=== PATIENT | male | born 1960 | race African-American/Black ===

== ENCOUNTER 2017-07-12 21:15 | Inpatient (IN) | payer MEDICAID ==
[~2017-07-12] VITALS: Ht 190.5 cm; Wt 84.8 kg
[2017-07-12] MEDS ORDERED: SODIUM CHLORIDE 0.9% 1,000 ML IV ONE ×2 (22:15)
[2017-07-12] MEDS ORDERED: NIVO40VI IV (22:53)
[2017-07-12 23:08] LABS: CLARITY URINE CLEAR (CLEAR); COLOR URINE YELLOW (YELLOW); KETONES URINE NEGATIVE (NEGATIVE); LEUKOCYTE ESTERASE URINE NEGATIVE (NEGATIVE); NITRITE URINE NEGATIVE (NEGATIVE); OCCULT BLOOD URINE 3+ (NEGATIVE); PH URINE 5.5 (4.5-8.0); PROTEIN URINE TRACE (NEGATIVE); SPECIFIC GRAVITY URINE 1.018 (1.005-1.030)
[2017-07-12 23:21] LABS: HEMATOCRIT. 26.7 % (42.0-52.0); HEMOGLOBIN. 8.9 g/dL (14.0-18.0); MEAN CORPUSCULAR HEMOGLOBIN 26.5 pg (28.0-32.0); MEAN CORPUSCULAR VOLUME 79.6 fL (80.0-94.0); MEAN PLATELET VOLUME 7.7 fl (7.4-10.4); PLATELET 440 x1000/uL (130-400); RED BLOOD CELL COUNT 3.36 mill/uL (4.7-6.1); RED CELL DISTRIBUTION WIDTH 16.8 % (11.6-14.6)
[2017-07-12 23:26] LABS: CHLORIDE 107 mEq/L (98-107)
[2017-07-12 23:28] LABS: INR 1.4; PROTHROMBIN TIME 14.6 sec (9.4-11.6)
[2017-07-12] MEDS ORDERED: VANCOMYCIN 1 G PREMIX 200 ML IV ONE (23:45)
[2017-07-12] MEDS ORDERED: PIPERACILLIN/TAZ 3.375G PREMIX 50 ML IV ONE (23:45)
[2017-07-12] MEDS ORDERED: SODIUM CHLORIDE 0.9% 500 ML IV ONE (23:45)
[2017-07-12 23:51] LABS: PLATELET ESTIMATE INCREASED
[2017-07-13 00:26] LABS: BG BASE EXCESS 0.1 mmol/L (-2.0-2.0); BG CARBOXYHEMOGLOBIN 1.5 % (0.5-1.5); BG DEOXYHEMOGLOBIN 31.5 % (0.0-5.0); BG FRACTION INSPIRED OXYGEN 100; BG HCO3 ACT 23.5 mmol/L (22.0-26.0); BG METHEMOGLOBIN 0.3 % (0.0-1.5); BG OXYGEN SATURATION 67.9 % (92.0-98.5); BG OXYHEMOGLOBIN 66.7 % (94.0-97.0); BG PO2 36.9 mmHg (75.0-100.0); BG SAMPLE SITE RIGHT FEMORAL; BG TOTAL HEMOGLOBIN 8.7 g/dL (12.0-18.0); BG VENT MODE MASK - AEROSOL
[2017-07-13] MEDS ORDERED: SODIUM CHLORIDE 0.9% 1,000 ML IV ONE (01:00)
[2017-07-13] MEDS ORDERED: IPRATROPIUM/ALBUTEROL 0.5-3(2.5)MG/3ML NEB HHN PRN (08:45)
[2017-07-13 08:58] LABS: BG CARBOXYHEMOGLOBIN 0.9 % (0.5-1.5); BG CPAP (cmH2O) 0 cm(H2O); BG HCO3 ACT 20.3 mmol/L (22.0-26.0); BG METHEMOGLOBIN 0.3 % (0.0-1.5); BG OXYHEMOGLOBIN 98.8 % (94.0-97.0); BG PCO2 25.9 mmHg (35.0-45.0); BG PH 7.512 (7.350-7.450); BG PO2 306.6 mmHg (75.0-100.0); BG SAMPLE SITE RIGHT BRACHIAL; BG TOTAL HEMOGLOBIN 8.4 g/dL (12.0-18.0); BG VENT MODE VENT - CPAP
[2017-07-13] MEDS ORDERED: LEVOFLOXACIN 750MG PREMIX 150 ML IV SCH (11:00)
[2017-07-13] MEDS ORDERED: IPRATROPIUM/ALBUTEROL 0.5-3(2.5)MG/3ML NEB HHN SCH (12:00)
[2017-07-13] MEDS ORDERED: CLONIDINE 0.1MG TABLET PO PRN (15:45)
[2017-07-13] MEDS ORDERED: VANCOMYCIN 1 G PREMIX 200 ML IV SCH (15:45)
[2017-07-13] MEDS ORDERED: ACETAMINOPHEN 650MG SUPP PR PRN (15:45)
[2017-07-13] MEDS ORDERED: NA PHOS,M-B/NA PHOS,DI-BA ENEMA 118ML PR PRN (15:45)
[2017-07-13] MEDS ORDERED: SODIUM CHLORIDE 0.9% 1,000 ML IV SCH (15:45)
[2017-07-13] MEDS ORDERED: POTASSIUM CHLORIDE 20MEQ TABLET SR PO NR (15:45)
[2017-07-13] MEDS ORDERED: MAGNESIUM/ALUMINUM HYDROXIDE/SIMETHICONE 30ML UDC PO PRN (15:45)
[2017-07-13] MEDS ORDERED: GUAIFENESIN 200MG/10ML SUGAR FREE UDC PO PRN (15:45)
[2017-07-13] MEDS ORDERED: PIPERACILLIN/TAZ 2.25G PREMIX 50 ML IV ONE (15:45)
[2017-07-13] MEDS ORDERED: IPRATROPIUM/ALBUTEROL 0.5-3(2.5)MG/3ML NEB INH PRN (15:45)
[2017-07-13] MEDS ORDERED: ACETAMINOPHEN 325MG TABLET PO PRN (15:45)
[2017-07-13] MEDS ORDERED: DOCUSATE SODIUM 100MG CAPSULE PO PRN (15:45)
[2017-07-13] MEDS ORDERED: METRONIDAZOLE 500 MG PREMIX 100 ML IV ONE (15:45)
[2017-07-13] MEDS ORDERED: ACETAMINOPHEN 650MG/20.3ML UDC GT PRN (15:45)
[2017-07-13] MEDS ORDERED: NOREPINEPHRINE 4 MG in DEXT 5% WATER 246 ML IV NR ×2 (16:20→16:30)
[2017-07-13] MEDS ORDERED: PAMIDRONATE DISODIUM 90 MG in SODIUM CHLORIDE 0.9% 500 ML IV NR (17:00)
[2017-07-13 17:52] LABS: CHLORIDE 116 mEq/L (98-107)
[2017-07-13 18:01] LABS: CREATINE KINASE 438 IU/L (39-308); CREATINE KINASE MB FRACTION 5.4 ng/mL (0.5-3.6); HDL CHOLESTEROL 23 mg/dL (40-59)
[2017-07-13 18:03] LABS: LDL CHOLESTEROL 8 mg/dL (5-100)
[2017-07-13] MEDS ORDERED: DEXTROSE 50% WATER 50ML SYRINGE IV ONE (18:10)
[2017-07-13 19:03] LABS: HEMATOCRIT. 25.2 % (42.0-52.0); MEAN CORPUSCULAR HEMOGLOBIN 25.7 pg (28.0-32.0); MEAN CORPUSCULAR VOLUME 80.6 fL (80.0-94.0); MEAN PLATELET VOLUME 7.8 fl (7.4-10.4); PLATELET 358 x1000/uL (130-400); RED BLOOD CELL COUNT 3.12 mill/uL (4.7-6.1); RED CELL DISTRIBUTION WIDTH 16.3 % (11.6-14.6)
[2017-07-13 19:30] LABS: PLATELET ESTIMATE NORMAL
[2017-07-13] MEDS ORDERED: PIPERACILLIN/TAZ 3.375G PREMIX 50 ML IV SCH (21:15)
[2017-07-13] MEDS ORDERED: MORPHINE SULFATE 4 MG/ML CPJ (NOT FOR IM USE) IV PRN (21:45)
[2017-07-13] MEDS ORDERED: ONDANSETRON HCL 4MG/2ML VIAL IV PRN (21:45)
[2017-07-13] MEDS ORDERED: PIPERACILLIN/TAZ 2.25G PREMIX 50 ML IV SCH (21:45)
[2017-07-13] MEDS ORDERED: POTASSIUM CHLORIDE INJ 40 MEQ in DEXT 5% WATER 500 ML IV NR (22:00)
[2017-07-13] MEDS ORDERED: SODIUM CHLORIDE 10% FOR INH 15ML VIAL NEB INH SCH (22:00)
[2017-07-13] MEDS ORDERED: ALBUMIN HUMAN 25GM/100ML (25%) IV NR (23:00)
[2017-07-13] MEDS: PIPERACILLIN/TAZ 3.375G PREMIX 50 ML IV SCH (23:00)
[2017-07-13] MEDS ORDERED: MVI, ADULT NO.1 10 ML, FOLIC ACID 1 MG, THIAMINE HCL 100 MG in SODIUM CHLORIDE 0.9% 1,0... IV SCH ×4 (23:00)
[2017-07-13] MEDS: MORPHINE SULFATE 4 MG/ML CPJ (NOT FOR IM USE) IV PRN (23:30)
[2017-07-13] MEDS: DEXTROSE 5% WATER 1,000 ML IV SCH (23:46)
[2017-07-14] VITALS (72 sets, daily range): BP systolic 62–155; BP diastolic 29–80
[2017-07-14] MEDS ORDERED: VANCOMYCIN 1500MG in DEXTROSE 5% WATER 250ML IV NR ×2
[2017-07-14] MEDS ORDERED: MAGNESIUM 2 G PREMIX 50 ML IV NR (01:00)
[2017-07-14] MEDS: IPRATROPIUM/ALBUTEROL 0.5-3(2.5)MG/3ML NEB INH SCH ×4 (01:17→20:50)
[2017-07-14] MEDS: ACETYLCYSTEINE 100MG/ML 10% VIAL 4ML INH SCH ×3 (01:18→13:35)
[2017-07-14 03:17] LABS: CREATINE KINASE MB FRACTION 4.2 ng/mL (0.5-3.6)
[2017-07-14 04:02] LABS: CLARITY URINE CLEAR (CLEAR); COLOR URINE YELLOW (YELLOW); KETONES URINE NEGATIVE (NEGATIVE); LEUKOCYTE ESTERASE URINE NEGATIVE (NEGATIVE); NITRITE URINE NEGATIVE (NEGATIVE); OCCULT BLOOD URINE 2+ (NEGATIVE); PH URINE 5.5 (4.5-8.0); PROTEIN URINE TRACE (NEGATIVE); SPECIFIC GRAVITY URINE 1.017 (1.005-1.030)
[2017-07-14 04:45] LABS: *AMPHETAMINES SCREEN URINE NEGATIVE (NEGATIVE); *BARBITURATES SCREEN URINE NEGATIVE (NEGATIVE); CANNABINOID URINE SCREEN NEGATIVE (NEGATIVE); PHENCYCLIDINE URINE SCREEN NEGATIVE (NEGATIVE)
[2017-07-14 04:46] LABS: *BENZODIAZEPINES SCREEN URINE NEGATIVE (NEGATIVE); *COCAINE SCREEN URINE NEGATIVE (NEGATIVE); METHADONE URINE SCREEN NEGATIVE (NEGATIVE); OPIATES URINE SCREEN PRESUMTIVE POSITIVE (NEGATIVE)
[2017-07-14 05:25] LABS: HEMATOCRIT. 22.1 % (42.0-52.0); HEMOGLOBIN. 7.4 g/dL (14.0-18.0); MEAN CORPUSCULAR HEMOGLOBIN 27.2 pg (28.0-32.0); MEAN CORPUSCULAR VOLUME 81.1 fL (80.0-94.0); MEAN PLATELET VOLUME 8.1 fl (7.4-10.4); PLATELET 257 x1000/uL (130-400); RED BLOOD CELL COUNT 2.73 mill/uL (4.7-6.1); RED CELL DISTRIBUTION WIDTH 16.3 % (11.6-14.6)
[2017-07-14 05:47] LABS: CHLORIDE 114 mEq/L (98-107)
[2017-07-14 06:01] LABS: HDL CHOLESTEROL 19 mg/dL (40-59)
[2017-07-14 06:02] LABS: CREATINE KINASE 328 IU/L (39-308)
[2017-07-14 06:05] LABS: CREATINE KINASE MB FRACTION 3.2 ng/mL (0.5-3.6)
[2017-07-14 06:06] LABS: LDL CHOLESTEROL 7 mg/dL (5-100)
[2017-07-14] MEDS: PIPERACILLIN/TAZ 3.375G PREMIX 50 ML IV SCH ×3 (06:32→21:43)
[2017-07-14] MEDS: NOREPINEPHRINE 4 MG in DEXT 5% WATER 246 ML IV PRN (07:00)
[2017-07-14] MEDS ORDERED: VANCOMYCIN 1 G PREMIX 200 ML IV SCH (08:00)
[2017-07-14] MEDS: ENOXAPARIN 40MG/0.4ML SYR SUBCUT SCH (09:59)
[2017-07-14] MEDS: DEXTROSE 5% WATER 1,000 ML IV SCH (10:00)
[2017-07-14 11:28] LABS: PLATELET ESTIMATE NORMAL
[2017-07-14] MEDS: LEVOFLOXACIN 750MG PREMIX 150 ML IV SCH (12:43)
[2017-07-14] MEDS: VANCOMYCIN 1 G PREMIX 200 ML IV SCH ×3 (12:43→22:21)
[2017-07-14 12:56] LABS: HEMATOCRIT. 23.3 % (42.0-52.0); HEMOGLOBIN. 7.3 g/dL (14.0-18.0); MEAN CORPUSCULAR HEMOGLOBIN 26.5 pg (28.0-32.0); MEAN CORPUSCULAR VOLUME 84.6 fL (80.0-94.0); MEAN PLATELET VOLUME 8.4 fl (7.4-10.4); PLATELET 253 x1000/uL (130-400); RED BLOOD CELL COUNT 2.76 mill/uL (4.7-6.1); RED CELL DISTRIBUTION WIDTH 16.9 % (11.6-14.6)
[2017-07-14] MEDS ORDERED: LIDOCAINE HCL/PF 1% 10 MG/ML 5ML VIAL ONE (14:13)
[2017-07-14] MEDS ORDERED: SODIUM CHLORIDE 0.9% 1,000 ML IV ONE (14:15)
[2017-07-14] MEDS: DOPAMINE 400MG PREMIX 250 ML IV PRN (16:29)
[2017-07-14 17:04] LABS: PLATELET ESTIMATE NORMAL
[2017-07-15] VITALS (83 sets, daily range): BP systolic 36–156; BP diastolic 17–92
[2017-07-15] MEDS: DEXTROSE 5% WATER 1,000 ML IV SCH (00:19)
[2017-07-15] MEDS: ACETYLCYSTEINE 100MG/ML 10% VIAL 4ML INH SCH ×3 (01:30→13:17)
[2017-07-15] MEDS: IPRATROPIUM/ALBUTEROL 0.5-3(2.5)MG/3ML NEB INH SCH ×4 (01:30→19:59)
[2017-07-15] MEDS: MORPHINE SULFATE 4 MG/ML CPJ (NOT FOR IM USE) IV PRN ×2 (02:02→18:53)
[2017-07-15] MEDS: VANCOMYCIN 1 G PREMIX 200 ML IV SCH (05:06)
[2017-07-15] MEDS: PIPERACILLIN/TAZ 3.375G PREMIX 50 ML IV SCH ×3 (05:08→20:39)
[2017-07-15 05:59] LABS: HEMATOCRIT. 24.7 % (42.0-52.0); HEMOGLOBIN. 8.3 g/dL (14.0-18.0); MEAN CORPUSCULAR HEMOGLOBIN 26.8 pg (28.0-32.0); MEAN CORPUSCULAR VOLUME 79.8 fL (80.0-94.0); MEAN PLATELET VOLUME 8.2 fl (7.4-10.4); PLATELET 233 x1000/uL (130-400); RED CELL DISTRIBUTION WIDTH 16.4 % (11.6-14.6)
[2017-07-15 06:13] LABS: CHLORIDE 112 mEq/L (98-107)
[2017-07-15 06:20] LABS: PHOSPHORUS 1.4 mg/dL (2.5-4.9)
[2017-07-15] MEDS: DOPAMINE 400MG PREMIX 250 ML IV PRN (08:20)
[2017-07-15] MEDS: ENOXAPARIN 40MG/0.4ML SYR SUBCUT SCH (08:21)
[2017-07-15] MEDS ORDERED: POTASSIUM PHOS,M-BASIC-D-BASIC 20 MMOL in DEXT 5% WATER 243.3333 ML IV NR (11:00)
[2017-07-15 11:18] LABS: NUCLEATED RED BLOOD CELLS 2 /100 WBC
[2017-07-15] MEDS: LEVOFLOXACIN 750MG PREMIX 150 ML IV SCH (12:48)
[2017-07-15] MEDS ORDERED: PAMIDRONATE DISODIUM 60 MG in SODIUM CHLORIDE 0.9% 500 ML IV ONE (13:30)
[2017-07-15] MEDS: VANCOMYCIN 1250MG in DEXTROSE 5% WATER 250ML IV SCH ×2 (14:02→21:21)
[2017-07-15 18:12] LABS: TOTAL IRON BINDING CAPACITY 151 ug/dL (250-450)
[2017-07-15 18:19] LABS: BG BASE EXCESS -0.7 mmol/L (-2.0-2.0); BG CARBOXYHEMOGLOBIN 0.4 % (0.5-1.5); BG DEOXYHEMOGLOBIN 0.6 % (0.0-5.0); BG FRACTION INSPIRED OXYGEN 55; BG HCO3 ACT 20.6 mmol/L (22.0-26.0); BG METHEMOGLOBIN 0.3 % (0.0-1.5); BG OXYGEN SATURATION 99.4 % (92.0-98.5); BG OXYHEMOGLOBIN 98.7 % (94.0-97.0); BG PCO2 23.7 mmHg (35.0-45.0); BG PH 7.557 (7.350-7.450); BG PO2 193.8 mmHg (75.0-100.0); BG SAMPLE SITE RIGHT RADIAL; BG TIDAL VOLUME(mL) 500 mL; BG TOTAL HEMOGLOBIN 9.9 g/dL (12.0-18.0); BG VENT MODE VENT - A/C; BG VENT RATE 12 set
[2017-07-15 18:48] LABS: VITAMIN B12 SERUM > 2000.0 pg/mL (211-911)
[2017-07-15] MEDS: NOREPINEPHRINE 4 MG in DEXT 5% WATER 246 ML IV PRN (18:53)
[2017-07-15 19:59] LABS: FERRITIN 2075 ng/mL (22-322)
[2017-07-15] MEDS: DIPHENHYDRAMINE 50MG/ML VIAL IV PRN (20:31)
[2017-07-15] MEDS: PANTOPRAZOLE SODIUM 40 MG/VIAL IV SCH (20:41)
[2017-07-16] VITALS (71 sets, daily range): BP systolic 77–142; BP diastolic 45–89
[2017-07-16] MEDS: IPRATROPIUM/ALBUTEROL 0.5-3(2.5)MG/3ML NEB INH SCH ×4 (01:32→19:59)
[2017-07-16] MEDS: ACETYLCYSTEINE 100MG/ML 10% VIAL 4ML INH SCH ×3 (01:32→13:03)
[2017-07-16] MEDS: PIPERACILLIN/TAZ 3.375G PREMIX 50 ML IV SCH ×4 (02:43→21:24)
[2017-07-16 05:49] LABS: BASOPHILS % 0.1 % (0.0-2.0); EOSINOPHILS % 0.1 % (0.0-5.0); HEMATOCRIT. 23.7 % (42.0-52.0); HEMOGLOBIN. 7.6 g/dL (14.0-18.0); LYMPHOCYTES % 1.8 % (20.0-50.0); MEAN CORPUSCULAR HEMOGLOBIN 25.3 pg (28.0-32.0); MEAN CORPUSCULAR VOLUME 78.9 fL (80.0-94.0); MEAN PLATELET VOLUME 8.3 fl (7.4-10.4); PLATELET 222 x1000/uL (130-400); RED CELL DISTRIBUTION WIDTH 16.4 % (11.6-14.6)
[2017-07-16 06:25] LABS: CHLORIDE 106 mEq/L (98-107)
[2017-07-16] MEDS: VANCOMYCIN 1250MG in DEXTROSE 5% WATER 250ML IV SCH (06:25)
[2017-07-16 06:40] LABS: PHOSPHORUS 1.8 mg/dL (2.5-4.9)
[2017-07-16] MEDS ORDERED: MORPHINE SULFATE 4 MG/ML CPJ (NOT FOR IM USE) IV PRN (08:15)
[2017-07-16] MEDS: NOREPINEPHRINE 4 MG in DEXT 5% WATER 246 ML IV PRN ×2 (08:38→16:16)
[2017-07-16] MEDS ORDERED: MAGNESIUM 2 G PREMIX 50 ML IV SCH (09:00)
[2017-07-16] MEDS: ENOXAPARIN 40MG/0.4ML SYR SUBCUT SCH (09:00)
[2017-07-16] MEDS: CALCITONIN,SALMON, 3.7 ML NASAL SPRAY ONENSTRL SCH ×2 (09:00→14:51)
[2017-07-16 09:09] LABS: A/G RATIO 0.7 (0.7-1.7); ALPHA-1-GLOBULIN 0.5 g/dL (0.0-0.4); ALPHA-2-GLOBULIN 0.8 g/dL (0.4-1.0); BETA GLOBULIN 0.7 g/dL (0.7-1.3); GAMMA GLOBULINS 0.9 g/dL (0.4-1.8); GLOBULIN TOTAL 2.9 g/dL (2.2-3.9); IMMUNOGLOBULIN A 285 mg/dL (90-386); IMMUNOGLOBULIN G 881 mg/dL (700-1600); IMMUNOGLOBULIN M 61 mg/dL (20-172); M-SPIKE Not Observed g/dL (Not Observed); TOTAL PROTEIN SERUM 4.9 g/dL (6.0-8.5); VITAMIN D 25-OH 69.5 ng/mL (30.0-100.0)
[2017-07-16] MEDS: PANTOPRAZOLE SODIUM 40 MG/VIAL IV SCH ×2 (09:16→21:19)
[2017-07-16] MEDS ORDERED: POTASSIUM PHOS,M-BASIC-D-BASIC 20 MMOL in DEXT 5% WATER 243.3333 ML IV SCH (10:00)
[2017-07-16 10:04] LABS: BG BASE EXCESS 0.1 mmol/L (-2.0-2.0); BG CARBOXYHEMOGLOBIN 1.3 % (0.5-1.5); BG DEOXYHEMOGLOBIN 1.3 % (0.0-5.0); BG FRACTION INSPIRED OXYGEN 40; BG HCO3 ACT 23.3 mmol/L (22.0-26.0); BG OXYHEMOGLOBIN 97.4 % (94.0-97.0); BG PCO2 31.8 mmHg (35.0-45.0); BG PH 7.483 (7.350-7.450); BG PO2 120.1 mmHg (75.0-100.0); BG PRESSURE SUPPORT 12; BG SAMPLE SITE RIGHT RADIAL; BG TIDAL VOLUME(mL) 500 mL; BG TOTAL HEMOGLOBIN 7.8 g/dL (12.0-18.0); BG VENT MODE VENT - SIMV; BG VENT RATE 8 set
[2017-07-16] MEDS ORDERED: SODIUM CHLORIDE 0.9% 1,000 ML IV STA (12:21)
[2017-07-16 13:18] LABS: CREATINE KINASE MB FRACTION 0.9 ng/mL (0.5-3.6)
[2017-07-16 15:16] LABS: INR 1.4; PROTHROMBIN TIME 14.2 sec (9.4-11.6)
[2017-07-16 15:59] LABS: LDL CHOLESTEROL 14 mg/dL (5-100)
[2017-07-16 16:00] LABS: HDL CHOLESTEROL 17 mg/dL (40-59)
[2017-07-16 16:01] LABS: T4 FREE 0.76 ng/dL (0.76-1.46)
[2017-07-16] MEDS: MORPHINE SULFATE 4 MG/ML CPJ (NOT FOR IM USE) IV PRN ×2 (16:36→21:16)
[2017-07-16] MEDS: HYDROCORTISONE SOD SUCCINATE 100 MG/2 ML VIAL IV SCH ×2 (17:51→21:20)
[2017-07-16] MEDS: DEXTROSE 5% WATER 1,000 ML IV SCH (17:52)
[2017-07-16] MEDS: DIPHENHYDRAMINE 50MG/ML VIAL IV PRN (21:19)
[2017-07-17] VITALS (73 sets, daily range): BP systolic 91–132; BP diastolic 40–93
[2017-07-17] MEDS: IPRATROPIUM/ALBUTEROL 0.5-3(2.5)MG/3ML NEB INH SCH ×4 (00:03→20:21)
[2017-07-17] MEDS: ACETYLCYSTEINE 100MG/ML 10% VIAL 4ML INH SCH ×2 (00:04)
[2017-07-17] MEDS: PIPERACILLIN/TAZ 3.375G PREMIX 50 ML IV SCH ×4 (03:00→20:48)
[2017-07-17] MEDS: HYDROCORTISONE SOD SUCCINATE 100 MG/2 ML VIAL IV SCH ×3 (05:22→23:12)
[2017-07-17 05:58] LABS: EOSINOPHILS % 0.1 % (0.0-5.0); HEMATOCRIT. 34.1 % (42.0-52.0); HEMOGLOBIN. 11.6 g/dL (14.0-18.0); LYMPHOCYTES % 1.3 % (20.0-50.0); MEAN CORPUSCULAR HEMOGLOBIN 27.8 pg (28.0-32.0); MEAN CORPUSCULAR VOLUME 81.7 fL (80.0-94.0); MEAN PLATELET VOLUME 7.8 fl (7.4-10.4); MONOCYTES % 4.2 % (2.0-8.0); NEUTROPHILS % 94.4 % (40.0-76.0); PLATELET 152 x1000/uL (130-400); RED BLOOD CELL COUNT 4.18 mill/uL (4.7-6.1); RED CELL DISTRIBUTION WIDTH 17.1 % (11.6-14.6)
[2017-07-17 06:10] LABS: CHLORIDE 102 mEq/L (98-107)
[2017-07-17 06:20] LABS: PHOSPHORUS 2.7 mg/dL (2.5-4.9)
[2017-07-17 06:23] LABS: CREATINE KINASE 110 IU/L (39-308)
[2017-07-17 06:25] LABS: CREATINE KINASE MB FRACTION 1.4 ng/mL (0.5-3.6)
[2017-07-17] MEDS: PANTOPRAZOLE SODIUM 40 MG/VIAL IV SCH ×2 (09:46→20:49)
[2017-07-17] MEDS: DEXTROSE 5% WATER 1,000 ML IV SCH (09:46)
[2017-07-17] MEDS: CALCITONIN,SALMON, 3.7 ML NASAL SPRAY ONENSTRL SCH (09:46)
[2017-07-17] MEDS ORDERED: POTASSIUM CHLORIDE INJ 40 MEQ in DEXT 5% WATER 500 ML IV NR (12:00)
[2017-07-17] MEDS: ENOXAPARIN 40MG/0.4ML SYR SUBCUT SCH (12:01)
[2017-07-17 15:33] LABS: CREATINE KINASE MB FRACTION 1.6 ng/mL (0.5-3.6)
[2017-07-17] MEDS: DEXT 5%/0.45% NACL KCL 20MEQ/L 1,000 ML IV SCH (17:38)
[2017-07-17] MEDS: MORPHINE SULFATE 4 MG/ML CPJ (NOT FOR IM USE) IV PRN (20:01)
[2017-07-17] MEDS: LORAZEPAM 2MG/ML CPJ IV PRN (20:30)
[2017-07-17] MEDS: ONDANSETRON HCL 4MG/2ML VIAL IV PRN (20:48)
[2017-07-17] MEDS: DIPHENHYDRAMINE 50MG/ML VIAL IV PRN (20:49)
[2017-07-18] VITALS (87 sets, daily range): BP systolic 81–178; BP diastolic 38–108
[2017-07-18] MEDS: LORAZEPAM 2MG/ML CPJ IV PRN ×2 (01:47→21:27)
[2017-07-18] MEDS: DEXT 5%/0.45% NACL KCL 20MEQ/L 1,000 ML IV SCH (01:55)
[2017-07-18] MEDS: IPRATROPIUM/ALBUTEROL 0.5-3(2.5)MG/3ML NEB INH SCH ×4 (02:39→21:00)
[2017-07-18] MEDS: PIPERACILLIN/TAZ 3.375G PREMIX 50 ML IV SCH ×4 (03:00→21:27)
[2017-07-18 06:00] LABS: HEMATOCRIT. 35.1 % (42.0-52.0); HEMOGLOBIN. 11.8 g/dL (14.0-18.0); MEAN CORPUSCULAR HEMOGLOBIN 27.3 pg (28.0-32.0); MEAN PLATELET VOLUME 8.4 fl (7.4-10.4); RED BLOOD CELL COUNT 4.34 mill/uL (4.7-6.1); RED CELL DISTRIBUTION WIDTH 17.2 % (11.6-14.6)
[2017-07-18 06:29] LABS: CHLORIDE 104 mEq/L (98-107)
[2017-07-18 06:57] LABS: PHOSPHORUS 1.6 mg/dL (2.5-4.9)
[2017-07-18] MEDS: MORPHINE SULFATE 4 MG/ML CPJ (NOT FOR IM USE) IV PRN (07:02)
[2017-07-18] MEDS: HYDROCORTISONE SOD SUCCINATE 100 MG/2 ML VIAL IV SCH ×3 (07:05→21:27)
[2017-07-18 08:04] LABS: BG BASE EXCESS -0.8 mmol/L (-2.0-2.0); BG CPAP (cmH2O) 0 cm(H2O); BG DEOXYHEMOGLOBIN 5.6 % (0.0-5.0); BG HCO3 ACT 21.3 mmol/L (22.0-26.0); BG METHEMOGLOBIN 0.3 % (0.0-1.5); BG OXYGEN SATURATION 94.3 % (92.0-98.5); BG OXYHEMOGLOBIN 93.1 % (94.0-97.0); BG PCO2 28.3 mmHg (35.0-45.0); BG PH 7.495 (7.350-7.450); BG PO2 66.7 mmHg (75.0-100.0); BG SAMPLE SITE RIGHT RADIAL; BG TOTAL HEMOGLOBIN 12.6 g/dL (12.0-18.0); BG VENT MODE VENT - CPAP
[2017-07-18] MEDS: ACETYLCYSTEINE 100MG/ML 10% VIAL 4ML INH SCH ×2 (08:50→15:56)
[2017-07-18 09:29] LABS: PREALBUMIN 3.2 mg/dL (20.0-40.0)
[2017-07-18] MEDS: CALCITONIN,SALMON, 3.7 ML NASAL SPRAY ONENSTRL SCH (09:43)
[2017-07-18] MEDS: PANTOPRAZOLE SODIUM 40 MG/VIAL IV SCH ×2 (09:43→21:27)
[2017-07-18] MEDS: ENOXAPARIN 40MG/0.4ML SYR SUBCUT SCH (09:43)
[2017-07-18] MEDS ORDERED: POTASSIUM PHOS,M-BASIC-D-BASIC 15 MMOL in DEXT 5% WATER 245 ML IV NR (10:00)
[2017-07-18] MEDS: DEXT 5%/0.9% NACL KCL 20MEQ/L 1,000 ML IV SCH ×2 (11:46→21:30)
[2017-07-18 13:03] LABS: PLATELET ESTIMATE NORMAL
[2017-07-18 13:05] LABS: PLATELET 123 x1000/uL (130-400)
[2017-07-18 13:06] LABS: VITAMIN D 1-25 DIHYDROXY 234.6 pg/mL (19.9-79.3)
[2017-07-18] MEDS: DIPHENHYDRAMINE 50MG/ML VIAL IV PRN (21:28)
[2017-07-19] VITALS (84 sets, daily range): BP systolic 55–188; BP diastolic 35–140
[2017-07-19] MEDS: IPRATROPIUM/ALBUTEROL 0.5-3(2.5)MG/3ML NEB INH SCH ×3 (00:57→13:57)
[2017-07-19] MEDS: ACETYLCYSTEINE 100MG/ML 10% VIAL 4ML INH SCH ×2 (00:58→20:47)
[2017-07-19] MEDS: MORPHINE SULFATE 4 MG/ML CPJ (NOT FOR IM USE) IV PRN ×3 (01:25→13:34)
[2017-07-19] MEDS: PIPERACILLIN/TAZ 3.375G PREMIX 50 ML IV SCH ×4 (04:09→21:16)
[2017-07-19] MEDS: LORAZEPAM 2MG/ML CPJ IV PRN (05:27)
[2017-07-19] MEDS: ONDANSETRON HCL 4MG/2ML VIAL IV PRN (05:27)
[2017-07-19] MEDS: HYDROCORTISONE SOD SUCCINATE 100 MG/2 ML VIAL IV SCH ×3 (05:28→21:16)
[2017-07-19 05:41] LABS: HEMATOCRIT. 33.1 % (42.0-52.0); HEMOGLOBIN. 11.1 g/dL (14.0-18.0); MEAN CORPUSCULAR HEMOGLOBIN 27.4 pg (28.0-32.0); MEAN CORPUSCULAR VOLUME 81.4 fL (80.0-94.0); MEAN PLATELET VOLUME 8.9 fl (7.4-10.4); PLATELET 120 x1000/uL (130-400); RED BLOOD CELL COUNT 4.06 mill/uL (4.7-6.1); RED CELL DISTRIBUTION WIDTH 17.6 % (11.6-14.6)
[2017-07-19 05:47] LABS: CHLORIDE 111 mEq/L (98-107)
[2017-07-19 05:55] LABS: PHOSPHORUS 1.6 mg/dL (2.5-4.9)
[2017-07-19 08:48] LABS: BG CARBOXYHEMOGLOBIN 0.7 % (0.5-1.5); BG DEOXYHEMOGLOBIN 1.4 % (0.0-5.0); BG FRACTION INSPIRED OXYGEN 50; BG HCO3 ACT 21.1 mmol/L (22.0-26.0); BG METHEMOGLOBIN 0.3 % (0.0-1.5); BG OXYGEN SATURATION 98.6 % (92.0-98.5); BG OXYHEMOGLOBIN 97.6 % (94.0-97.0); BG PCO2 30.9 mmHg (35.0-45.0); BG PH 7.453 (7.350-7.450); BG PO2 131.1 mmHg (75.0-100.0); BG PRESSURE SUPPORT 12; BG SAMPLE SITE RIGHT RADIAL; BG TIDAL VOLUME(mL) 500 mL; BG TOTAL HEMOGLOBIN 11.4 g/dL (12.0-18.0); BG VENT MODE VENT - SIMV; BG VENT RATE 8 set
[2017-07-19] MEDS: PANTOPRAZOLE SODIUM 40 MG/VIAL IV SCH ×2 (10:07→21:16)
[2017-07-19] MEDS: DEXT 5%/0.9% NACL KCL 20MEQ/L 1,000 ML IV SCH ×2 (10:07→21:11)
[2017-07-19] MEDS: CALCITONIN,SALMON, 3.7 ML NASAL SPRAY ONENSTRL SCH (10:08)
[2017-07-19] MEDS: ENOXAPARIN 40MG/0.4ML SYR SUBCUT SCH (10:09)
[2017-07-19] MEDS ORDERED: PAMIDRONATE DISODIUM 60 MG in SODIUM CHLORIDE 0.9% 1,000 ML IV NR (12:30)
[2017-07-19] MEDS ORDERED: POTASSIUM PHOS,M-BASIC-D-BASIC 30 MMOL in DEXT 5% WATER 500 ML IV NR (12:30)
[2017-07-19 14:15] LABS: PLATELET ESTIMATE SLIGHTLY DECREASED
[2017-07-19] MEDS: ALBUTEROL (0.083%) 2.5MG/3ML NEB HHN SCH (20:47)
[2017-07-20] VITALS (86 sets, daily range): BP systolic 61–218; BP diastolic 31–160
[2017-07-20] MEDS: ALBUTEROL (0.083%) 2.5MG/3ML NEB HHN SCH ×4 (02:19→20:04)
[2017-07-20] MEDS: PIPERACILLIN/TAZ 3.375G PREMIX 50 ML IV SCH ×4 (04:18→21:07)
[2017-07-20 05:37] LABS: HEMATOCRIT. 32.7 % (42.0-52.0); HEMOGLOBIN. 10.9 g/dL (14.0-18.0); MEAN CORPUSCULAR HEMOGLOBIN 27.6 pg (28.0-32.0); MEAN CORPUSCULAR VOLUME 82.7 fL (80.0-94.0); MEAN PLATELET VOLUME 9.2 fl (7.4-10.4); PLATELET 107 x1000/uL (130-400); RED BLOOD CELL COUNT 3.95 mill/uL (4.7-6.1); RED CELL DISTRIBUTION WIDTH 18.3 % (11.6-14.6)
[2017-07-20] MEDS: HYDROCORTISONE SOD SUCCINATE 100 MG/2 ML VIAL IV SCH ×3 (05:38→22:53)
[2017-07-20 06:45] LABS: CHLORIDE 114 mEq/L (98-107)
[2017-07-20 07:05] LABS: PHOSPHORUS 1.9 mg/dL (2.5-4.9)
[2017-07-20] MEDS: ACETYLCYSTEINE 100MG/ML 10% VIAL 4ML INH SCH ×2 (08:19→20:04)
[2017-07-20] MEDS: ENOXAPARIN 40MG/0.4ML SYR SUBCUT SCH (08:22)
[2017-07-20] MEDS: PANTOPRAZOLE SODIUM 40 MG/VIAL IV SCH ×2 (09:10→21:07)
[2017-07-20] MEDS: DEXT 5%/0.9% NACL KCL 20MEQ/L 1,000 ML IV SCH (09:10)
[2017-07-20] MEDS: CALCITONIN,SALMON, 3.7 ML NASAL SPRAY ONENSTRL SCH (09:11)
[2017-07-20] MEDS ORDERED: POTASSIUM PHOS,M-BASIC-D-BASIC 20 MMOL in DEXT 5% WATER 243.3333 ML IV NR (09:30)
[2017-07-20] MEDS ORDERED: FUROSEMIDE 20MG/2ML VIAL IVP NR (11:33)
[2017-07-20] MEDS: DEXT 5%/0.45% NACL KCL 20MEQ/L 1,000 ML IV SCH (12:28)
[2017-07-20] MEDS ORDERED: FLUCONAZOLE 100MG/50ML PREMIX IV SCH (13:45)
[2017-07-20] MEDS ORDERED: POTASSIUM PHOS,M-BASIC-D-BASIC 10 MMOL in DEXT 5% WATER 246.6667 ML IV SCH (14:00)
[2017-07-20 15:02] LABS: PLATELET ESTIMATE SLIGHTLY DECREASED
[2017-07-20] MEDS: FLUCONAZOLE 100MG/50ML in BAG IV SCH (15:04)
[2017-07-20] MEDS: LORAZEPAM 2MG/ML CPJ IV PRN (15:09)
[2017-07-20] MEDS ORDERED: MIDAZOLAM HCL 5 MG/5 ML VIAL ONE (16:16)
[2017-07-20] MEDS: MORPHINE SULFATE 4 MG/ML CPJ (NOT FOR IM USE) IV PRN (22:54)
[2017-07-21] VITALS (49 sets, daily range): BP systolic 88–159; BP diastolic 57–99
[2017-07-21] MEDS: DEXT 5%/0.45% NACL KCL 20MEQ/L 1,000 ML IV SCH (00:28)
[2017-07-21] MEDS: ALBUTEROL (0.083%) 2.5MG/3ML NEB HHN SCH ×4 (02:00→20:09)
[2017-07-21 05:44] LABS: HEMATOCRIT. 33.1 % (42.0-52.0); MEAN CORPUSCULAR HEMOGLOBIN 27.4 pg (28.0-32.0); MEAN CORPUSCULAR VOLUME 82.7 fL (80.0-94.0); MEAN PLATELET VOLUME 9.8 fl (7.4-10.4); PLATELET 112 x1000/uL (130-400); RED BLOOD CELL COUNT 4.01 mill/uL (4.7-6.1); RED CELL DISTRIBUTION WIDTH 18.3 % (11.6-14.6)
[2017-07-21 05:51] LABS: CHLORIDE 113 mEq/L (98-107)
[2017-07-21 06:07] LABS: PHOSPHORUS 2.2 mg/dL (2.5-4.9)
[2017-07-21] MEDS: HYDROCORTISONE SOD SUCCINATE 100 MG/2 ML VIAL IV SCH ×3 (06:16→21:44)
[2017-07-21] MEDS: ACETYLCYSTEINE 100MG/ML 10% VIAL 4ML INH SCH ×3 (08:14→20:16)
[2017-07-21] MEDS: PANTOPRAZOLE SODIUM 40 MG/VIAL IV SCH ×2 (08:26→21:44)
[2017-07-21] MEDS: CALCITONIN,SALMON, 3.7 ML NASAL SPRAY ONENSTRL SCH (08:34)
[2017-07-21 09:03] LABS: PLATELET ESTIMATE SLIGHTLY DECREASED
[2017-07-21 10:39] LABS: BG BASE EXCESS 0.3 mmol/L (-2.0-2.0); BG CARBOXYHEMOGLOBIN 0.5 % (0.5-1.5); BG DEOXYHEMOGLOBIN 7.6 % (0.0-5.0); BG FRACTION INSPIRED OXYGEN 45; BG HCO3 ACT 22.3 mmol/L (22.0-26.0); BG METHEMOGLOBIN 0.3 % (0.0-1.5); BG OXYHEMOGLOBIN 91.6 % (94.0-97.0); BG PCO2 28.3 mmHg (35.0-45.0); BG PH 7.515 (7.350-7.450); BG SAMPLE SITE RIGHT RADIAL; BG TIDAL VOLUME(mL) 580 mL; BG TOTAL HEMOGLOBIN 11.6 g/dL (12.0-18.0); BG VENT MODE VENT - A/C; BG VENT RATE 10 set
[2017-07-21] MEDS ORDERED: POTASSIUM PHOS,M-BASIC-D-BASIC 15 MMOL in DEXT 5% WATER 245 ML IV NR (11:00)
[2017-07-21] MEDS: DEXT 5%/0.45% NACL 1000ML 1,000 ML IV SCH ×2 (11:57→20:00)
[2017-07-21] MEDS: MORPHINE SULFATE 4 MG/ML CPJ (NOT FOR IM USE) IV PRN ×2 (12:40→16:40)
[2017-07-21] MEDS: FLUCONAZOLE 100MG/50ML in BAG IV SCH (14:40)
[2017-07-21] MEDS: LORAZEPAM 2MG/ML CPJ IV PRN (21:44)
[2017-07-22] VITALS (29 sets, daily range): BP systolic 95–188; BP diastolic 58–117
[2017-07-22] MEDS: MORPHINE SULFATE 4 MG/ML CPJ (NOT FOR IM USE) IV PRN ×4 (02:47→22:33)
[2017-07-22] MEDS: ALBUTEROL (0.083%) 2.5MG/3ML NEB HHN SCH ×4 (04:34→20:26)
[2017-07-22 05:43] LABS: HEMATOCRIT. 30.7 % (42.0-52.0); HEMOGLOBIN. 10.3 g/dL (14.0-18.0); MEAN CORPUSCULAR HEMOGLOBIN 27.8 pg (28.0-32.0); MEAN CORPUSCULAR VOLUME 82.7 fL (80.0-94.0); MEAN PLATELET VOLUME 10.2 fl (7.4-10.4); PLATELET 114 x1000/uL (130-400); RED BLOOD CELL COUNT 3.71 mill/uL (4.7-6.1); RED CELL DISTRIBUTION WIDTH 18.5 % (11.6-14.6)
[2017-07-22 05:54] LABS: CHLORIDE 114 mEq/L (98-107)
[2017-07-22 06:02] LABS: PHOSPHORUS 1.6 mg/dL (2.5-4.9)
[2017-07-22] MEDS: HYDROCORTISONE SOD SUCCINATE 100 MG/2 ML VIAL IV SCH ×3 (06:09→22:31)
[2017-07-22] MEDS: ACETYLCYSTEINE 100MG/ML 10% VIAL 4ML INH SCH ×2 (07:31→20:27)
[2017-07-22] MEDS ORDERED: MAGNESIUM 2 G PREMIX 50 ML IV SCH (08:00)
[2017-07-22] MEDS: DEXT 5%/0.45% NACL 1000ML 1,000 ML IV SCH ×2 (08:00→15:42)
[2017-07-22] MEDS: CALCITONIN,SALMON, 3.7 ML NASAL SPRAY ONENSTRL SCH (08:31)
[2017-07-22] MEDS: PANTOPRAZOLE SODIUM 40 MG/VIAL IV SCH ×2 (08:31→22:32)
[2017-07-22] MEDS ORDERED: POTASSIUM PHOS,M-BASIC-D-BASIC 30 MMOL in DEXT 5% WATER 500 ML IV SCH (09:00)
[2017-07-22 11:33] LABS: BG BASE EXCESS 1.4 mmol/L (-2.0-2.0); BG CARBOXYHEMOGLOBIN 0.3 % (0.5-1.5); BG DEOXYHEMOGLOBIN 3.9 % (0.0-5.0); BG FRACTION INSPIRED OXYGEN 50; BG HCO3 ACT 24.4 mmol/L (22.0-26.0); BG METHEMOGLOBIN 0.3 % (0.0-1.5); BG OXYHEMOGLOBIN 95.5 % (94.0-97.0); BG PCO2 32.7 mmHg (35.0-45.0); BG PO2 79.9 mmHg (75.0-100.0); BG SAMPLE SITE RIGHT RADIAL; BG TIDAL VOLUME(mL) 450 mL; BG TOTAL HEMOGLOBIN 11.3 g/dL (12.0-18.0); BG VENT MODE VENT - A/C; BG VENT RATE 12 set
[2017-07-22] MEDS ORDERED: POTASSIUM PHOS,M-BASIC-D-BASIC 30 MMOL in DEXT 5% WATER 500 ML IV ONE (14:15)
[2017-07-22] MEDS: LORAZEPAM 2MG/ML CPJ IV PRN (14:39)
[2017-07-22] MEDS: FLUCONAZOLE 100MG/50ML in BAG IV SCH (15:42)
[2017-07-22 17:46] LABS: PLATELET ESTIMATE DECREASED
[2017-07-23] VITALS (12 sets, daily range): BP systolic 96–175; BP diastolic 25–95
[2017-07-23] MEDS: ALBUTEROL (0.083%) 2.5MG/3ML NEB HHN SCH ×4 (01:56→19:57)
[2017-07-23] MEDS: DEXT 5%/0.45% NACL 1000ML 1,000 ML IV SCH (02:48)
[2017-07-23 07:07] LABS: HEMATOCRIT. 31.3 % (42.0-52.0); HEMOGLOBIN. 10.1 g/dL (14.0-18.0); MEAN CORPUSCULAR HEMOGLOBIN 26.6 pg (28.0-32.0); MEAN PLATELET VOLUME 9.7 fl (7.4-10.4); PLATELET 118 x1000/uL (130-400); RED BLOOD CELL COUNT 3.81 mill/uL (4.7-6.1); RED CELL DISTRIBUTION WIDTH 18.2 % (11.6-14.6)
[2017-07-23] MEDS: HYDROCORTISONE SOD SUCCINATE 100 MG/2 ML VIAL IV SCH ×3 (07:12→21:46)
[2017-07-23 08:12] LABS: CHLORIDE 112 mEq/L (98-107)
[2017-07-23] MEDS: MORPHINE SULFATE 4 MG/ML CPJ (NOT FOR IM USE) IV PRN ×2 (08:14→21:47)
[2017-07-23] MEDS: ACETYLCYSTEINE 100MG/ML 10% VIAL 4ML INH SCH ×2 (08:20→19:57)
[2017-07-23 08:24] LABS: PHOSPHORUS 1.9 mg/dL (2.5-4.9)
[2017-07-23 08:25] LABS: PLATELET ESTIMATE SLIGHTLY DECREASED
[2017-07-23] MEDS: PANTOPRAZOLE SODIUM 40 MG/VIAL IV SCH ×2 (08:49→21:46)
[2017-07-23] MEDS: CALCITONIN,SALMON, 3.7 ML NASAL SPRAY ONENSTRL SCH (08:50)
[2017-07-23] MEDS ORDERED: DEXT 5%/0.9% NACL 1,000 ML IV ONE (09:30)
[2017-07-23] MEDS: POTASSIUM PHOS,M-BASIC-D-BASIC 30 MMOL in DEXTROSE 5% WATER 1,000 ML IV SCH ×2 (11:03→23:08)
[2017-07-23 12:36] LABS: BG BASE EXCESS 1.9 mmol/L (-2.0-2.0); BG CARBOXYHEMOGLOBIN 0.3 % (0.5-1.5); BG DEOXYHEMOGLOBIN 1.6 % (0.0-5.0); BG FRACTION INSPIRED OXYGEN 50; BG METHEMOGLOBIN 0.3 % (0.0-1.5); BG OXYGEN SATURATION 98.4 % (92.0-98.5); BG OXYHEMOGLOBIN 97.8 % (94.0-97.0); BG PCO2 29.5 mmHg (35.0-45.0); BG PH 7.529 (7.350-7.450); BG PO2 121.9 mmHg (75.0-100.0); BG SAMPLE SITE RIGHT BRACHIAL; BG TIDAL VOLUME(mL) 450 mL; BG TOTAL HEMOGLOBIN 10.5 g/dL (12.0-18.0); BG VENT MODE VENT - A/C; BG VENT RATE 12 set
[2017-07-23] MEDS: FLUCONAZOLE 100MG/50ML in BAG IV SCH (14:08)
[2017-07-23] MEDS: LORAZEPAM 2MG/ML CPJ IV PRN (14:27)
[2017-07-23] MEDS: RISPERIDONE 0.25MG TABLET PO SCH (17:23)
[2017-07-24] VITALS (12 sets, daily range): BP systolic 87–133; BP diastolic 55–90
[2017-07-24] MEDS: ALBUTEROL (0.083%) 2.5MG/3ML NEB HHN SCH ×5 (01:21→20:25)
[2017-07-24] MEDS: HYDROCORTISONE SOD SUCCINATE 100 MG/2 ML VIAL IV SCH ×3 (06:41→21:25)
[2017-07-24 07:18] LABS: HEMATOCRIT. 28.3 % (42.0-52.0); HEMOGLOBIN. 9.3 g/dL (14.0-18.0); MEAN CORPUSCULAR HEMOGLOBIN 27.1 pg (28.0-32.0); MEAN CORPUSCULAR VOLUME 82.2 fL (80.0-94.0); MEAN PLATELET VOLUME 10.6 fl (7.4-10.4); PLATELET 116 x1000/uL (130-400); RED BLOOD CELL COUNT 3.44 mill/uL (4.7-6.1); RED CELL DISTRIBUTION WIDTH 18.2 % (11.6-14.6)
[2017-07-24] MEDS ORDERED: ALBU2.5V13 HHN (07:33)
[2017-07-24] MEDS ORDERED: RISO02 PO (07:33)
[2017-07-24] MEDS ORDERED: MUC103 INH (07:33)
[2017-07-24] MEDS ORDERED: CALC3.8S ONENSTRL (07:36)
[2017-07-24 07:47] LABS: CHLORIDE 106 mEq/L (98-107)
[2017-07-24 07:57] LABS: PHOSPHORUS 2.9 mg/dL (2.5-4.9)
[2017-07-24] MEDS: ACETYLCYSTEINE 100MG/ML 10% VIAL 4ML INH SCH ×2 (08:00→20:25)
[2017-07-24] MEDS: PANTOPRAZOLE SODIUM 40 MG/VIAL IV SCH ×2 (08:47→21:25)
[2017-07-24] MEDS: CALCITONIN,SALMON, 3.7 ML NASAL SPRAY ONENSTRL SCH (08:47)
[2017-07-24] MEDS: RISPERIDONE 0.25MG TABLET PO SCH ×2 (08:48→17:48)
[2017-07-24 10:11] LABS: PLATELET ESTIMATE SLIGHTLY DECREASED
[2017-07-24] MEDS: POTASSIUM PHOS,M-BASIC-D-BASIC 30 MMOL in DEXTROSE 5% WATER 1,000 ML IV SCH (13:41)
[2017-07-24 14:22] LABS: BG CARBOXYHEMOGLOBIN 0.5 % (0.5-1.5); BG DEOXYHEMOGLOBIN 1.9 % (0.0-5.0); BG FRACTION INSPIRED OXYGEN 50; BG METHEMOGLOBIN 0.3 % (0.0-1.5); BG OXYGEN SATURATION 98.1 % (92.0-98.5); BG OXYHEMOGLOBIN 97.3 % (94.0-97.0); BG PCO2 23.1 mmHg (35.0-45.0); BG PH 7.634 (7.350-7.450); BG PO2 99.7 mmHg (75.0-100.0); BG PRESSURE SUPPORT 14; BG SAMPLE SITE RIGHT RADIAL; BG TIDAL VOLUME(mL) 450 mL; BG TOTAL HEMOGLOBIN 11.3 g/dL (12.0-18.0); BG VENT MODE VENT - SIMV; BG VENT RATE 10 set
[2017-07-24] MEDS: FLUCONAZOLE 100MG/50ML in BAG IV SCH (14:36)
[2017-07-24] MEDS ORDERED: DEXT 5%/0.9% NACL 1,000 ML IV SCH (15:45)
[2017-07-24] MEDS ORDERED: MAGNESIUM 2 G PREMIX 50 ML IV NR (16:00)
[2017-07-24] MEDS ORDERED: HYDROCODONE/ACETAMINOPHEN 5/325MG TABLET PO PRN (22:15)
[2017-07-25] VITALS (16 sets, daily range): BP systolic 84–116; BP diastolic 59–78
[2017-07-25] MEDS: ALBUTEROL (0.083%) 2.5MG/3ML NEB HHN SCH ×4 (02:15→19:52)
[2017-07-25] MEDS: POTASSIUM PHOS,M-BASIC-D-BASIC 30 MMOL in DEXTROSE 5% WATER 1,000 ML IV SCH ×2 (04:38→15:05)
[2017-07-25] MEDS: HYDROCORTISONE SOD SUCCINATE 100 MG/2 ML VIAL IV SCH ×3 (05:42→21:13)
[2017-07-25] MEDS: LORAZEPAM 2MG/ML CPJ IV PRN ×2 (06:49→17:50)
[2017-07-25 07:04] LABS: HEMOGLOBIN. 9.9 g/dL (14.0-18.0); MEAN CORPUSCULAR HEMOGLOBIN 27.1 pg (28.0-32.0); MEAN CORPUSCULAR VOLUME 81.9 fL (80.0-94.0); MEAN PLATELET VOLUME 10.1 fl (7.4-10.4); PLATELET 117 x1000/uL (130-400); RED BLOOD CELL COUNT 3.67 mill/uL (4.7-6.1)
[2017-07-25 08:03] LABS: CHLORIDE 102 mEq/L (98-107)
[2017-07-25 09:18] LABS: PLATELET ESTIMATE SLIGHTLY DECREASED
[2017-07-25] MEDS: PANTOPRAZOLE SODIUM 40 MG/VIAL IV SCH ×2 (10:18→21:13)
[2017-07-25] MEDS: CALCITONIN,SALMON, 3.7 ML NASAL SPRAY ONENSTRL SCH (10:18)
[2017-07-25] MEDS: RISPERIDONE 0.25MG TABLET PO SCH ×2 (10:18→17:46)
[2017-07-25] MEDS: FLUCONAZOLE 100MG/50ML in BAG IV SCH (15:04)
[2017-07-26] VITALS (15 sets, daily range): BP systolic 88–123; BP diastolic 46–73
[2017-07-26] MEDS: ALBUTEROL (0.083%) 2.5MG/3ML NEB HHN SCH ×3 (02:07→20:38)
[2017-07-26] MEDS: POTASSIUM PHOS,M-BASIC-D-BASIC 30 MMOL in DEXTROSE 5% WATER 1,000 ML IV SCH ×2 (05:38→20:00)
[2017-07-26] MEDS: HYDROCORTISONE SOD SUCCINATE 100 MG/2 ML VIAL IV SCH ×3 (05:38→21:24)
[2017-07-26 06:53] LABS: HEMATOCRIT. 30.1 % (42.0-52.0); MEAN CORPUSCULAR HEMOGLOBIN 27.3 pg (28.0-32.0); MEAN CORPUSCULAR VOLUME 82.2 fL (80.0-94.0); MEAN PLATELET VOLUME 10.2 fl (7.4-10.4); PLATELET 101 x1000/uL (130-400); RED BLOOD CELL COUNT 3.66 mill/uL (4.7-6.1); RED CELL DISTRIBUTION WIDTH 18.4 % (11.6-14.6)
[2017-07-26 07:12] LABS: CHLORIDE 99 mEq/L (98-107)
[2017-07-26 07:21] LABS: PHOSPHORUS 2.9 mg/dL (2.5-4.9)
[2017-07-26] MEDS: ALBUTEROL (0.083%) 2.5MG/3ML NEB HHN PRN (08:06)
[2017-07-26] MEDS: PANTOPRAZOLE SODIUM 40 MG/VIAL IV SCH ×2 (09:07→21:24)
[2017-07-26] MEDS: CALCITONIN,SALMON, 3.7 ML NASAL SPRAY ONENSTRL SCH (09:07)
[2017-07-26] MEDS: RISPERIDONE 0.25MG TABLET PO SCH ×2 (09:09→16:50)
[2017-07-26 10:20] LABS: PLATELET ESTIMATE DECREASED
[2017-07-26] MEDS: FLUCONAZOLE 100MG/50ML in BAG IV SCH (14:39)
[2017-07-26] MEDS: LORAZEPAM 2MG/ML CPJ IV PRN (20:00)
[2017-07-27] VITALS (12 sets, daily range): BP systolic 88–106; BP diastolic 37–79
[2017-07-27] MEDS: ALBUTEROL (0.083%) 2.5MG/3ML NEB HHN SCH ×5 (02:15→23:14)
[2017-07-27] MEDS: HYDROCORTISONE SOD SUCCINATE 100 MG/2 ML VIAL IV SCH ×3 (05:25→21:48)
[2017-07-27 07:32] LABS: HEMATOCRIT. 29.3 % (42.0-52.0); HEMOGLOBIN. 9.7 g/dL (14.0-18.0); MEAN CORPUSCULAR HEMOGLOBIN 27.2 pg (28.0-32.0); MEAN CORPUSCULAR VOLUME 82.1 fL (80.0-94.0); MEAN PLATELET VOLUME 10.4 fl (7.4-10.4); PLATELET 116 x1000/uL (130-400); RED BLOOD CELL COUNT 3.57 mill/uL (4.7-6.1); RED CELL DISTRIBUTION WIDTH 18.1 % (11.6-14.6)
[2017-07-27 07:46] LABS: CHLORIDE 99 mEq/L (98-107)
[2017-07-27 07:54] LABS: PHOSPHORUS 3.1 mg/dL (2.5-4.9)
[2017-07-27] MEDS: POTASSIUM PHOS,M-BASIC-D-BASIC 30 MMOL in DEXTROSE 5% WATER 1,000 ML IV SCH ×2 (08:03→21:49)
[2017-07-27] MEDS: CALCITONIN,SALMON, 3.7 ML NASAL SPRAY ONENSTRL SCH (08:03)
[2017-07-27] MEDS: RISPERIDONE 0.25MG TABLET PO SCH ×2 (08:03→17:14)
[2017-07-27] MEDS: PANTOPRAZOLE SODIUM 40 MG/VIAL IV SCH ×2 (08:03→21:48)
[2017-07-27 09:46] LABS: PLATELET ESTIMATE DECREASED
[2017-07-27] MEDS: LORAZEPAM 2MG/ML CPJ IV PRN ×2 (11:17→17:17)
[2017-07-27] MEDS: FLUCONAZOLE 100MG/50ML in BAG IV SCH (14:06)
[2017-07-27] MEDS ORDERED: NOREPINEPHRINE 4 MG in DEXT 5% WATER 246 ML IV PRN (23:30)
[2017-07-27] MEDS ORDERED: SODIUM CHLORIDE 0.9% 1000ML BAG (SEPSIS BOLUS) IV NR (23:30)
[2017-07-28] VITALS (12 sets, daily range): BP systolic 86–115; BP diastolic 32–78
[2017-07-28] MEDS ORDERED: ALBUMIN HUMAN 25GM/100ML (25%) IV NR ×2 (01:00→11:15)
[2017-07-28] MEDS: CEFEPIME 1,000 MG in DEXTROSE 5% WATER 50 ML IV SCH ×2 (02:08→13:42)
[2017-07-28] MEDS: HYDROCORTISONE SOD SUCCINATE 100 MG/2 ML VIAL IV SCH ×3 (05:34→21:14)
[2017-07-28 07:19] LABS: HEMATOCRIT. 23.9 % (42.0-52.0); HEMOGLOBIN. 8.2 g/dL (14.0-18.0); MEAN CORPUSCULAR HEMOGLOBIN 27.9 pg (28.0-32.0); MEAN CORPUSCULAR VOLUME 81.7 fL (80.0-94.0); MEAN PLATELET VOLUME 10.6 fl (7.4-10.4); PLATELET 101 x1000/uL (130-400); RED BLOOD CELL COUNT 2.93 mill/uL (4.7-6.1)
[2017-07-28] MEDS ORDERED: SODIUM CHLORIDE 0.9% 500 ML IV ONE (07:30)
[2017-07-28] MEDS ORDERED: SODIUM CHLORIDE 0.9% 1000ML BAG (SEPSIS BOLUS) IV ONE (07:30)
[2017-07-28 07:34] LABS: KETONES URINE NEGATIVE (NEGATIVE); LEUKOCYTE ESTERASE URINE NEGATIVE (NEGATIVE); NITRITE URINE NEGATIVE (NEGATIVE); OCCULT BLOOD URINE NEGATIVE (NEGATIVE); PROTEIN URINE TRACE (NEGATIVE); SPECIFIC GRAVITY URINE 1.011 (1.005-1.030)
[2017-07-28 07:36] LABS: CLARITY URINE CLEAR (CLEAR); COLOR URINE YELLOW (YELLOW)
[2017-07-28 07:40] LABS: CHLORIDE 101 mEq/L (98-107)
[2017-07-28] MEDS: ALBUTEROL (0.083%) 2.5MG/3ML NEB HHN SCH ×2 (08:17→13:58)
[2017-07-28] MEDS: CALCITONIN,SALMON, 3.7 ML NASAL SPRAY ONENSTRL SCH (09:07)
[2017-07-28] MEDS: RISPERIDONE 0.25MG TABLET PO SCH (09:07)
[2017-07-28] MEDS: PANTOPRAZOLE SODIUM 40 MG/VIAL IV SCH ×2 (09:07→21:14)
[2017-07-28 16:44] LABS: BG BASE EXCESS 3.1 mmol/L (-2.0-2.0); BG CARBOXYHEMOGLOBIN 0.6 % (0.5-1.5); BG DEOXYHEMOGLOBIN 4.3 % (0.0-5.0); BG FRACTION INSPIRED OXYGEN 50; BG HCO3 ACT 25.5 mmol/L (22.0-26.0); BG METHEMOGLOBIN 0.1 % (0.0-1.5); BG OXYGEN SATURATION 95.7 % (92.0-98.5); BG PCO2 30.5 mmHg (35.0-45.0); BG PO2 74.7 mmHg (75.0-100.0); BG PRESSURE SUPPORT 14; BG SAMPLE SITE RIGHT RADIAL; BG TIDAL VOLUME(mL) 450 mL; BG VENT MODE VENT - SIMV; BG VENT RATE 10 set
[2017-07-28] MEDS: METRONIDAZOLE 500 MG PREMIX 100 ML IV SCH (19:58)
[2017-07-28] MEDS ORDERED: DIGOXIN 500MCG/2ML AMP IV NR (20:54)
[2017-07-28 22:27] LABS: PLATELET ESTIMATE DECREASED
[2017-07-28] MEDS: LORAZEPAM 2MG/ML CPJ IV PRN (22:51)
[2017-07-29] VITALS (11 sets, daily range): BP systolic 85–115; BP diastolic 55–76
[2017-07-29] MEDS: ALBUTEROL (0.083%) 2.5MG/3ML NEB HHN SCH ×2 (01:42→08:14)
[2017-07-29] MEDS: CEFEPIME 1,000 MG in DEXTROSE 5% WATER 50 ML IV SCH ×2 (01:53→15:03)
[2017-07-29] MEDS: METRONIDAZOLE 500 MG PREMIX 100 ML IV SCH ×2 (02:57→09:25)
[2017-07-29] MEDS: HYDROCORTISONE SOD SUCCINATE 100 MG/2 ML VIAL IV SCH ×3 (05:58→21:28)
[2017-07-29 07:26] LABS: BG BASE EXCESS 0.9 mmol/L (-2.0-2.0); BG CARBOXYHEMOGLOBIN 0.3 % (0.5-1.5); BG DEOXYHEMOGLOBIN 0.4 % (0.0-5.0); BG HCO3 ACT 25.2 mmol/L (22.0-26.0); BG METHEMOGLOBIN 0.5 % (0.0-1.5); BG OXYGEN SATURATION 99.6 % (92.0-98.5); BG OXYHEMOGLOBIN 98.8 % (94.0-97.0); BG PCO2 38.8 mmHg (35.0-45.0); BG PO2 417.8 mmHg (75.0-100.0); BG PRESSURE SUPPORT 14; BG SAMPLE SITE RIGHT BRACHIAL; BG TIDAL VOLUME(mL) 450 mL; BG TOTAL HEMOGLOBIN 12.8 g/dL (12.0-18.0); BG VENT MODE VENT - SIMV; BG VENT RATE 10 set
[2017-07-29] MEDS: PANTOPRAZOLE SODIUM 40 MG/VIAL IV SCH ×2 (09:25→21:28)
[2017-07-29] MEDS: CALCITONIN,SALMON, 3.7 ML NASAL SPRAY ONENSTRL SCH (09:25)
[2017-07-29] MEDS ORDERED: SODIUM CHLORIDE 0.9% 1000ML BAG (SEPSIS BOLUS) IV NR (12:45)
[2017-07-29] MEDS ORDERED: DILTIAZEM HCL 30MG TABLET PO SCH (14:00)
[2017-07-29] MEDS ORDERED: ALBUMIN HUMAN 25GM/100ML (25%) IV NR (14:00)
[2017-07-29 14:33] LABS: HEMATOCRIT. 27.9 % (42.0-52.0); HEMOGLOBIN. 9.2 g/dL (14.0-18.0); MEAN CORPUSCULAR HEMOGLOBIN 27.2 pg (28.0-32.0); MEAN CORPUSCULAR VOLUME 82.2 fL (80.0-94.0); MEAN PLATELET VOLUME 10.3 fl (7.4-10.4); PLATELET 143 x1000/uL (130-400); RED BLOOD CELL COUNT 3.39 mill/uL (4.7-6.1)
[2017-07-29 14:38] LABS: CHLORIDE 106 mEq/L (98-107)
[2017-07-29] MEDS: MIDODRINE HCL 5MG TABLET PO SCH ×2 (15:30→16:45)
[2017-07-29] MEDS ORDERED: SODIUM CHLORIDE 0.9% 500ML IV SOLN IV NR (15:45)
[2017-07-29] MEDS ORDERED: CEFE1FRO2 IV (16:51)
[2017-07-29] MEDS ORDERED: MIDO5TAB PO (16:51)
[2017-07-29] MEDS ORDERED: DIGOXIN 500MCG/2ML AMP IV NR (16:56)
[2017-07-29] MEDS ORDERED: POTASSIUM CHLORIDE 20MEQ TABLET SR PO NR (17:00)
[2017-07-29] MEDS: IPRATROPIUM BROMIDE (0.02%) 0.5MG/2.5ML NEB HHN SCH (20:10)
[2017-07-29 20:33] LABS: PLATELET ESTIMATE NORMAL
[2017-07-30] VITALS (12 sets, daily range): BP systolic 91–112; BP diastolic 58–76
[2017-07-30] MEDS: IPRATROPIUM BROMIDE (0.02%) 0.5MG/2.5ML NEB HHN SCH ×4 (02:03→20:38)
[2017-07-30] MEDS: CEFEPIME 1,000 MG in DEXTROSE 5% WATER 50 ML IV SCH ×2 (02:37→14:19)
[2017-07-30] MEDS: HYDROCORTISONE SOD SUCCINATE 100 MG/2 ML VIAL IV SCH ×2 (06:11→17:25)
[2017-07-30] MEDS ORDERED: SODIUM CHLORIDE 0.9% 1000ML BAG (SEPSIS BOLUS) IV ONE (08:00)
[2017-07-30] MEDS ORDERED: SODIUM CHLORIDE 0.9% 500 ML IV SCH (08:15)
[2017-07-30] MEDS: PANTOPRAZOLE SODIUM 40 MG/VIAL IV SCH ×2 (09:34→21:55)
[2017-07-30] MEDS: MIDODRINE HCL 5MG TABLET PO SCH ×3 (09:35→17:26)
[2017-07-30] MEDS: CALCITONIN,SALMON, 3.7 ML NASAL SPRAY ONENSTRL SCH (09:35)
[2017-07-30] MEDS: LORAZEPAM 2MG/ML CPJ IV PRN (22:27)
[2017-07-31] VITALS (12 sets, daily range): BP systolic 87–118; BP diastolic 59–80
[2017-07-31] MEDS ORDERED: DIGOXIN 500MCG/2ML AMP IV NR (01:45)
[2017-07-31] MEDS: IPRATROPIUM BROMIDE (0.02%) 0.5MG/2.5ML NEB HHN SCH ×4 (01:54→21:19)
[2017-07-31] MEDS: CEFEPIME 1,000 MG in DEXTROSE 5% WATER 50 ML IV SCH ×2 (02:04→13:00)
[2017-07-31] MEDS ORDERED: SODIUM CHLORIDE 10% FOR INH 15ML VIAL NEB INH NR (05:30)
[2017-07-31] MEDS ORDERED: SODIUM CHLORIDE 0.9% 500 ML IV ONE ×2 (07:30)
[2017-07-31] MEDS: CALCITONIN,SALMON, 3.7 ML NASAL SPRAY ONENSTRL SCH (08:11)
[2017-07-31] MEDS: MIDODRINE HCL 5MG TABLET PO SCH ×3 (08:11→16:06)
[2017-07-31] MEDS: HYDROCORTISONE SOD SUCCINATE 100 MG/2 ML VIAL IV SCH ×2 (08:12→16:06)
[2017-07-31] MEDS: PANTOPRAZOLE SODIUM 40 MG/VIAL IV SCH ×2 (08:12→21:01)
[2017-07-31] MEDS: RISPERIDONE 0.25MG TABLET PO SCH ×2 (08:17→16:06)
[2017-07-31 09:43] LABS: HEMATOCRIT. 29.3 % (42.0-52.0); HEMOGLOBIN. 9.6 g/dL (14.0-18.0); MEAN CORPUSCULAR HEMOGLOBIN 26.9 pg (28.0-32.0); MEAN CORPUSCULAR VOLUME 82.1 fL (80.0-94.0); MEAN PLATELET VOLUME 10.6 fl (7.4-10.4); PLATELET 183 x1000/uL (130-400); RED BLOOD CELL COUNT 3.57 mill/uL (4.7-6.1)
[2017-07-31 10:04] LABS: CHLORIDE 111 mEq/L (98-107)
[2017-07-31 14:26] LABS: PLATELET ESTIMATE NORMAL
[2017-07-31] MEDS ORDERED: DIGOXIN 125MCG TABLET PO SCH (18:00)
[2017-08-01] VITALS (14 sets, daily range): BP systolic 81–99; BP diastolic 56–68
[2017-08-01] MEDS: IPRATROPIUM BROMIDE (0.02%) 0.5MG/2.5ML NEB HHN SCH ×4 (01:29→20:18)
[2017-08-01] MEDS: CEFEPIME 1,000 MG in DEXTROSE 5% WATER 50 ML IV SCH ×2 (01:31→13:09)
[2017-08-01] MEDS: MIDODRINE HCL 5MG TABLET PO SCH ×3 (08:27→17:24)
[2017-08-01] MEDS: HYDROCORTISONE SOD SUCCINATE 100 MG/2 ML VIAL IV SCH ×2 (08:27→17:24)
[2017-08-01] MEDS: PANTOPRAZOLE SODIUM 40 MG/VIAL IV SCH ×2 (08:27→21:40)
[2017-08-01] MEDS: CALCITONIN,SALMON, 3.7 ML NASAL SPRAY ONENSTRL SCH (08:27)
[2017-08-01] MEDS: RISPERIDONE 0.25MG TABLET PO SCH ×2 (08:28→17:00)
[2017-08-01] MEDS ORDERED: SODIUM CHLORIDE 0.9% 1,000 ML IV ONE (08:30)
[2017-08-01] MEDS: SODIUM CHLORIDE 0.9% 1,000 ML IV SCH ×2 (09:07→23:34)
[2017-08-01] MEDS: CEFTAZIDIME PENTAHYDRATE 2 G in DEXT 5% WATER 100 ML IV SCH (17:24)
[2017-08-02] VITALS (50 sets, daily range): BP systolic 72–129; BP diastolic 48–110
[2017-08-02] MEDS: IPRATROPIUM BROMIDE (0.02%) 0.5MG/2.5ML NEB HHN SCH ×4 (01:43→19:56)
[2017-08-02] MEDS: CEFTAZIDIME PENTAHYDRATE 2 G in DEXT 5% WATER 100 ML IV SCH ×3 (02:24→17:38)
[2017-08-02] MEDS: SODIUM CHLORIDE 0.9% 1,000 ML IV SCH ×3 (06:32→21:59)
[2017-08-02] MEDS: RISPERIDONE 0.25MG TABLET PO SCH ×2 (09:00→17:00)
[2017-08-02] MEDS: PANTOPRAZOLE SODIUM 40 MG/VIAL IV SCH ×2 (09:32→21:58)
[2017-08-02] MEDS: MIDODRINE HCL 5MG TABLET PO SCH ×3 (09:33→17:38)
[2017-08-02] MEDS: HYDROCORTISONE SOD SUCCINATE 100 MG/2 ML VIAL IV SCH ×2 (09:33→17:37)
[2017-08-02] MEDS: CALCITONIN,SALMON, 3.7 ML NASAL SPRAY ONENSTRL SCH (09:36)
[2017-08-02] MEDS ORDERED: SODIUM CHLORIDE 0.9% 250 ML IV ONE (10:15)
[2017-08-02 12:56] LABS: HEMATOCRIT. 27.2 % (42.0-52.0); HEMOGLOBIN. 8.9 g/dL (14.0-18.0); MEAN CORPUSCULAR HEMOGLOBIN 27.4 pg (28.0-32.0); MEAN PLATELET VOLUME 9.8 fl (7.4-10.4); PLATELET 141 x1000/uL (130-400); RED BLOOD CELL COUNT 3.24 mill/uL (4.7-6.1)
[2017-08-02 13:23] LABS: CHLORIDE 120 mEq/L (98-107)
[2017-08-02 13:47] LABS: PLATELET ESTIMATE NORMAL
[2017-08-02] MEDS ORDERED: IPRATROPIUM BROMIDE (0.02%) 0.5MG/2.5ML NEB ONE (14:59)
[2017-08-02] MEDS: VANCOMYCIN 1250MG in DEXTROSE 5% WATER 250ML IV SCH (15:21)
[2017-08-02] MEDS: PHENYLEPHRINE 40 MG in DEXT 5% WATER 246 ML IV PRN ×2 (15:21→22:00)
[2017-08-02] MEDS: METRONIDAZOLE 500 MG PREMIX 100 ML IV SCH ×2 (15:22→21:59)
[2017-08-02 18:17] LABS: BG BASE EXCESS 1.2 mmol/L (-2.0-2.0); BG CARBOXYHEMOGLOBIN 0.3 % (0.5-1.5); BG DEOXYHEMOGLOBIN 3.1 % (0.0-5.0); BG FRACTION INSPIRED OXYGEN 40; BG HCO3 ACT 25.3 mmol/L (22.0-26.0); BG METHEMOGLOBIN 0.1 % (0.0-1.5); BG OXYGEN SATURATION 96.9 % (92.0-98.5); BG OXYHEMOGLOBIN 96.5 % (94.0-97.0); BG PCO2 37.8 mmHg (35.0-45.0); BG PH 7.443 (7.350-7.450); BG SAMPLE SITE RIGHT BRACHIAL; BG TIDAL VOLUME(mL) 450 mL; BG VENT MODE VENT - A/C; BG VENT RATE 12 set
[2017-08-02 20:13] LABS: CHLORIDE 118 mEq/L (98-107)
[2017-08-02 20:15] LABS: HEMATOCRIT. 30.1 % (42.0-52.0); HEMOGLOBIN. 9.3 g/dL (14.0-18.0); MEAN CORPUSCULAR HEMOGLOBIN 27.1 pg (28.0-32.0); MEAN CORPUSCULAR VOLUME 87.4 fL (80.0-94.0); MEAN PLATELET VOLUME 10.4 fl (7.4-10.4); PLATELET 173 x1000/uL (130-400); RED BLOOD CELL COUNT 3.44 mill/uL (4.7-6.1); RED CELL DISTRIBUTION WIDTH 18.7 % (11.6-14.6)
[2017-08-02 20:19] LABS: PHOSPHORUS 2.4 mg/dL (2.5-4.9)
[2017-08-02 20:53] LABS: NUCLEATED RED BLOOD CELLS 2 /100 WBC; PLATELET ESTIMATE NORMAL
[2017-08-03] VITALS (93 sets, daily range): BP systolic 59–168; BP diastolic 20–105
[2017-08-03] MEDS: CEFTAZIDIME PENTAHYDRATE 2 G in DEXT 5% WATER 100 ML IV SCH ×3 (01:02→17:36)
[2017-08-03] MEDS: PHENYLEPHRINE 80 MG in DEXT 5% WATER 492 ML IV PRN ×4 (01:02→23:40)
[2017-08-03] MEDS: IPRATROPIUM BROMIDE (0.02%) 0.5MG/2.5ML NEB HHN SCH ×4 (02:12→20:38)
[2017-08-03] MEDS: VANCOMYCIN 1250MG in DEXTROSE 5% WATER 250ML IV SCH (04:00)
[2017-08-03] MEDS: RISPERIDONE 0.25MG TABLET PO SCH (07:51)
[2017-08-03] MEDS: MIDODRINE HCL 5MG TABLET PO SCH ×3 (08:07→16:44)
[2017-08-03] MEDS: HYDROCORTISONE SOD SUCCINATE 100 MG/2 ML VIAL IV SCH ×2 (08:07→16:44)
[2017-08-03] MEDS: METRONIDAZOLE 500 MG PREMIX 100 ML IV SCH ×3 (08:07→22:02)
[2017-08-03] MEDS: CALCITONIN,SALMON, 3.7 ML NASAL SPRAY ONENSTRL SCH (08:08)
[2017-08-03] MEDS: SODIUM CHLORIDE 0.9% 1,000 ML IV SCH ×2 (08:08→20:00)
[2017-08-03] MEDS: PANTOPRAZOLE SODIUM 40 MG/VIAL IV SCH ×2 (08:13→20:01)
[2017-08-03] MEDS: NOREPINEPHRINE 16 MG in DEXT 5% WATER 234 ML IV PRN ×2 (08:22→20:01)
[2017-08-03 10:11] LABS: HEMOGLOBIN. 8.8 g/dL (14.0-18.0); MEAN CORPUSCULAR HEMOGLOBIN 27.4 pg (28.0-32.0); MEAN CORPUSCULAR VOLUME 84.2 fL (80.0-94.0); PLATELET 144 x1000/uL (130-400); RED BLOOD CELL COUNT 3.21 mill/uL (4.7-6.1); RED CELL DISTRIBUTION WIDTH 18.7 % (11.6-14.6)
[2017-08-03 10:25] LABS: D-DIMER 3.83 mg/L FEU (<0.50); INR 1.6; PARTIAL THROMBOPLASTIN TIME 34.4 sec (23.4-31.0)
[2017-08-03 10:26] LABS: BG CARBOXYHEMOGLOBIN 0.3 % (0.5-1.5); BG FRACTION INSPIRED OXYGEN 40; BG HCO3 ACT 21.7 mmol/L (22.0-26.0); BG METHEMOGLOBIN 0.3 % (0.0-1.5); BG OXYHEMOGLOBIN 96.4 % (94.0-97.0); BG PCO2 32.7 mmHg (35.0-45.0); BG PH 7.439 (7.350-7.450); BG PO2 97.1 mmHg (75.0-100.0); BG SAMPLE SITE RIGHT BRACHIAL; BG TIDAL VOLUME(mL) 450 mL; BG TOTAL HEMOGLOBIN 9.7 g/dL (12.0-18.0); BG VENT MODE VENT - A/C; BG VENT RATE 12 set
[2017-08-03 10:44] LABS: CHLORIDE 116 mEq/L (98-107)
[2017-08-03 10:51] LABS: PHOSPHORUS 2.1 mg/dL (2.5-4.9)
[2017-08-03 11:51] LABS: PLATELET ESTIMATE NORMAL
[2017-08-03] MEDS ORDERED: MAGNESIUM 2 G PREMIX 50 ML IV SCH (12:00)
[2017-08-03] MEDS ORDERED: POTASSIUM PHOS,M-BASIC-D-BASIC 20 MMOL in DEXT 5% WATER 243.3333 ML IV SCH (12:30)
[2017-08-03] MEDS: LEVETIRACETAM 1000MG/100ML 100 ML IV SCH ×2 (13:34→22:02)
[2017-08-03] MEDS: VANCOMYCIN 1 G PREMIX 200 ML IV SCH ×2 (13:34→20:01)
[2017-08-03] MEDS ORDERED: PHENYLEPHRINE 80 MG in DEXT 5% WATER 500 ML IV PRN (15:30)
[2017-08-04] VITALS (92 sets, daily range): BP systolic 60–207; BP diastolic 28–111
[2017-08-04] MEDS: CEFTAZIDIME PENTAHYDRATE 2 G in DEXT 5% WATER 100 ML IV SCH ×3 (01:29→17:36)
[2017-08-04] MEDS: IPRATROPIUM BROMIDE (0.02%) 0.5MG/2.5ML NEB HHN SCH ×4 (02:11→20:55)
[2017-08-04] MEDS: NOREPINEPHRINE 16 MG in DEXT 5% WATER 234 ML IV PRN ×3 (03:29→20:56)
[2017-08-04] MEDS: SODIUM CHLORIDE 0.9% 1,000 ML IV SCH ×3 (05:39→17:39)
[2017-08-04] MEDS: VANCOMYCIN 1 G PREMIX 200 ML IV SCH (05:39)
[2017-08-04] MEDS: PHENYLEPHRINE 80 MG in DEXT 5% WATER 492 ML IV PRN (06:59)
[2017-08-04] MEDS: METRONIDAZOLE 500 MG PREMIX 100 ML IV SCH (07:30)
[2017-08-04 08:03] LABS: CHLORIDE 111 mEq/L (98-107)
[2017-08-04 08:27] LABS: HEMATOCRIT. 26.7 % (42.0-52.0); HEMOGLOBIN. 8.6 g/dL (14.0-18.0); MEAN CORPUSCULAR HEMOGLOBIN 27.1 pg (28.0-32.0); MEAN CORPUSCULAR VOLUME 84.1 fL (80.0-94.0); MEAN PLATELET VOLUME 10.3 fl (7.4-10.4); PLATELET 117 x1000/uL (130-400); RED BLOOD CELL COUNT 3.18 mill/uL (4.7-6.1)
[2017-08-04] MEDS ORDERED: POTASSIUM CHLORIDE INJ 40 MEQ in DEXT 5% WATER 250 ML IV ONE (08:45)
[2017-08-04] MEDS: CALCITONIN,SALMON, 3.7 ML NASAL SPRAY ONENSTRL SCH (09:04)
[2017-08-04] MEDS: HYDROCORTISONE SOD SUCCINATE 100 MG/2 ML VIAL IV SCH ×2 (09:04→17:13)
[2017-08-04] MEDS: PANTOPRAZOLE SODIUM 40 MG/VIAL IV SCH ×2 (09:04→22:30)
[2017-08-04] MEDS: MIDODRINE HCL 5MG TABLET PO SCH ×3 (09:04→17:13)
[2017-08-04] MEDS: LEVETIRACETAM 1000MG/100ML 100 ML IV SCH ×2 (09:05→22:31)
[2017-08-04 09:45] LABS: BG BASE EXCESS -5.7 mmol/L (-2.0-2.0); BG CARBOXYHEMOGLOBIN 0.3 % (0.5-1.5); BG DEOXYHEMOGLOBIN 3.6 % (0.0-5.0); BG FRACTION INSPIRED OXYGEN 40; BG HCO3 ACT 18.1 mmol/L (22.0-26.0); BG OXYGEN SATURATION 96.4 % (92.0-98.5); BG OXYHEMOGLOBIN 96.1 % (94.0-97.0); BG PCO2 29.9 mmHg (35.0-45.0); BG PH 7.401 (7.350-7.450); BG PO2 93.1 mmHg (75.0-100.0); BG SAMPLE SITE LEFT BRACHIAL; BG TIDAL VOLUME(mL) 450 mL; BG TOTAL HEMOGLOBIN 9.6 g/dL (12.0-18.0); BG VENT MODE VENT - A/C; BG VENT RATE 12 set
[2017-08-04] MEDS: KCL 20MEQ/100ML PREMIX 100 ML IV SCH ×2 (09:55→12:09)
[2017-08-04 10:56] LABS: NUCLEATED RED BLOOD CELLS 1 /100 WBC; PLATELET ESTIMATE DECREASED
[2017-08-04] MEDS ORDERED: SODIUM CHLORIDE 0.9% 500 ML IV ONE ×2 (13:00→20:00)
[2017-08-04] MEDS: PHENYLEPHRINE 40 MG in SODIUM CHLORIDE 0.9% 246 ML IV PRN ×4 (13:21→20:56)
[2017-08-04] MEDS: METRONIDAZOLE 500MG TABLET PO SCH ×2 (14:18→22:30)
[2017-08-04] MEDS: SULFAMETHOXAZOLE/TRIMETHOPRIM 800/160MG TABLET PO SCH ×2 (14:18→22:30)
[2017-08-04] MEDS: ACETYLCYSTEINE 100MG/ML 10% VIAL 4ML INH SCH (14:40)
[2017-08-05] VITALS (87 sets, daily range): BP systolic 55–131; BP diastolic 18–84
[2017-08-05] MEDS: VASOPRESSIN 10 UNIT in SODIUM CHLORIDE 0.9% 99.5 ML IV PRN ×6 (01:25→23:47)
[2017-08-05] MEDS: CEFTAZIDIME PENTAHYDRATE 2 G in DEXT 5% WATER 100 ML IV SCH ×3 (01:26→17:20)
[2017-08-05] MEDS: PHENYLEPHRINE 40 MG in SODIUM CHLORIDE 0.9% 246 ML IV PRN ×7 (01:26→23:46)
[2017-08-05] MEDS: IPRATROPIUM BROMIDE (0.02%) 0.5MG/2.5ML NEB HHN SCH ×4 (02:18→20:21)
[2017-08-05] MEDS: ACETYLCYSTEINE 100MG/ML 10% VIAL 4ML INH SCH ×3 (02:18→15:46)
[2017-08-05] MEDS: NOREPINEPHRINE 16 MG in DEXT 5% WATER 234 ML IV PRN ×3 (04:48→21:37)
[2017-08-05] MEDS: SODIUM CHLORIDE 0.9% 1,000 ML IV SCH (06:43)
[2017-08-05 06:44] LABS: CHLORIDE 114 mEq/L (98-107)
[2017-08-05 08:24] LABS: BG BASE EXCESS -10.8 mmol/L (-2.0-2.0); BG CARBOXYHEMOGLOBIN 0.6 % (0.5-1.5); BG DEOXYHEMOGLOBIN 19.1 % (0.0-5.0); BG FRACTION INSPIRED OXYGEN 40; BG HCO3 ACT 13.9 mmol/L (22.0-26.0); BG OXYGEN SATURATION 80.8 % (92.0-98.5); BG OXYHEMOGLOBIN 80.3 % (94.0-97.0); BG PCO2 27.6 mmHg (35.0-45.0); BG PO2 49.1 mmHg (75.0-100.0); BG SAMPLE SITE LEFT BRACHIAL; BG TIDAL VOLUME(mL) 450 mL; BG TOTAL HEMOGLOBIN 11.6 g/dL (12.0-18.0); BG VENT MODE VENT - A/C
[2017-08-05] MEDS ORDERED: SODIUM CHLORIDE 0.9% 500 ML IV ONE (08:30)
[2017-08-05] MEDS: SULFAMETHOXAZOLE/TRIMETHOPRIM 800/160MG TABLET PO SCH ×2 (08:38→21:41)
[2017-08-05] MEDS: PANTOPRAZOLE SODIUM 40 MG/VIAL IV SCH ×2 (08:38→21:41)
[2017-08-05] MEDS: HYDROCORTISONE SOD SUCCINATE 100 MG/2 ML VIAL IV SCH (08:38)
[2017-08-05] MEDS: MIDODRINE HCL 5MG TABLET PO SCH ×3 (08:38→17:20)
[2017-08-05] MEDS: METRONIDAZOLE 500MG TABLET PO SCH ×2 (08:38→21:41)
[2017-08-05] MEDS: SODIUM BICARBONATE 150 MEQ in SODIUM CHLORIDE 0.45% 850 ML IV SCH ×2 (10:34→21:33)
[2017-08-05] MEDS: LEVETIRACETAM 1000MG/100ML 100 ML IV SCH ×2 (10:35→21:33)
[2017-08-05] MEDS: CALCITONIN,SALMON, 3.7 ML NASAL SPRAY ONENSTRL SCH (10:35)
[2017-08-05 19:24] LABS: HEMATOCRIT. 22.9 % (42.0-52.0); HEMOGLOBIN. 7.5 g/dL (14.0-18.0); MEAN CORPUSCULAR HEMOGLOBIN 27.3 pg (28.0-32.0); MEAN CORPUSCULAR VOLUME 83.3 fL (80.0-94.0); MEAN PLATELET VOLUME 10.5 fl (7.4-10.4); PLATELET 67 x1000/uL (130-400); RED BLOOD CELL COUNT 2.75 mill/uL (4.7-6.1); RED CELL DISTRIBUTION WIDTH 18.6 % (11.6-14.6)
[2017-08-05 19:33] LABS: CHLORIDE 113 mEq/L (98-107)
[2017-08-05 19:47] LABS: PLATELET ESTIMATE DECREASED
[2017-08-05] MEDS ORDERED: PHENYLEPHRINE 40 MG in DEXT 5% WATER 500 ML IV PRN (23:45)
[2017-08-06] VITALS (92 sets, daily range): BP systolic 80–129; BP diastolic 50–79
[2017-08-06] MEDS: ALBUTEROL (0.083%) 2.5MG/3ML NEB HHN PRN (00:29)
[2017-08-06] MEDS: ACETYLCYSTEINE 100MG/ML 10% VIAL 4ML INH SCH ×2 (00:29→13:55)
[2017-08-06] MEDS: IPRATROPIUM BROMIDE (0.02%) 0.5MG/2.5ML NEB HHN SCH ×3 (00:29→20:15)
[2017-08-06] MEDS: CEFTAZIDIME PENTAHYDRATE 2 G in DEXT 5% WATER 100 ML IV SCH ×3 (01:38→17:08)
[2017-08-06] MEDS: PHENYLEPHRINE 80 MG in DEXT 5% WATER 492 ML IV PRN ×3 (03:43→18:37)
[2017-08-06] MEDS: NOREPINEPHRINE 32 MG in DEXT 5% WATER 468 ML IV PRN ×2 (03:43→21:27)
[2017-08-06] MEDS: VASOPRESSIN 10 UNIT in SODIUM CHLORIDE 0.9% 99.5 ML IV PRN ×4 (03:44→21:27)
[2017-08-06 05:45] LABS: HEMATOCRIT. 23.4 % (42.0-52.0); HEMOGLOBIN. 7.7 g/dL (14.0-18.0); MEAN CORPUSCULAR HEMOGLOBIN 27.5 pg (28.0-32.0); MEAN CORPUSCULAR VOLUME 83.4 fL (80.0-94.0); MEAN PLATELET VOLUME 10.5 fl (7.4-10.4); PLATELET 58 x1000/uL (130-400); RED BLOOD CELL COUNT 2.81 mill/uL (4.7-6.1); RED CELL DISTRIBUTION WIDTH 18.9 % (11.6-14.6)
[2017-08-06 05:58] LABS: CHLORIDE 112 mEq/L (98-107)
[2017-08-06] MEDS ORDERED: POTASSIUM CHLORIDE INJ 60 MEQ in DEXT 5% WATER 250 ML IV ONE (06:45)
[2017-08-06] MEDS: BLOOD SUGAR DIAGNOSTIC STRIP TEST SCH ×3 (07:46→17:08)
[2017-08-06] MEDS ORDERED: BLOOD SUGAR DIAGNOSTIC STRIP TEST SCH (07:50)
[2017-08-06] MEDS: SODIUM BICARBONATE 150 MEQ in SODIUM CHLORIDE 0.45% 850 ML IV SCH (07:56)
[2017-08-06] MEDS: KCL 20MEQ/100ML PREMIX 100 ML IV SCH ×3 (07:56→12:52)
[2017-08-06] MEDS: INSULIN LISPRO 100 UNITS/ML SUBCUT SCH ×3 (08:20→17:08)
[2017-08-06 08:31] LABS: BG BASE EXCESS -3.6 mmol/L (-2.0-2.0); BG CARBOXYHEMOGLOBIN 0.3 % (0.5-1.5); BG DEOXYHEMOGLOBIN 5.2 % (0.0-5.0); BG FRACTION INSPIRED OXYGEN 30; BG HCO3 ACT 19.5 mmol/L (22.0-26.0); BG METHEMOGLOBIN 0.1 % (0.0-1.5); BG OXYGEN SATURATION 94.8 % (92.0-98.5); BG OXYHEMOGLOBIN 94.4 % (94.0-97.0); BG PCO2 27.8 mmHg (35.0-45.0); BG PH 7.463 (7.350-7.450); BG PO2 79.1 mmHg (75.0-100.0); BG SAMPLE SITE LEFT RADIAL; BG TIDAL VOLUME(mL) 450 mL; BG TOTAL HEMOGLOBIN 8.6 g/dL (12.0-18.0); BG VENT MODE VENT - A/C; BG VENT RATE 18 set
[2017-08-06] MEDS: HYDROCORTISONE SOD SUCCINATE 100 MG/2 ML VIAL IV SCH ×2 (09:00→09:32)
[2017-08-06] MEDS: MORPHINE SULFATE 4 MG/ML CPJ (NOT FOR IM USE) IV PRN (09:31)
[2017-08-06] MEDS: PANTOPRAZOLE SODIUM 40 MG/VIAL IV SCH ×2 (09:32→21:25)
[2017-08-06] MEDS: LEVETIRACETAM 1000MG/100ML 100 ML IV SCH ×2 (09:32→21:26)
[2017-08-06] MEDS: CALCITONIN,SALMON, 3.7 ML NASAL SPRAY ONENSTRL SCH (09:32)
[2017-08-06] MEDS: MIDODRINE HCL 5MG TABLET PO SCH ×3 (09:32→16:00)
[2017-08-06] MEDS: METRONIDAZOLE 500MG TABLET PO SCH ×2 (09:33→21:26)
[2017-08-06] MEDS: SULFAMETHOXAZOLE/TRIMETHOPRIM 800/160MG TABLET PO SCH ×2 (09:33→21:25)
[2017-08-06 10:16] LABS: NUCLEATED RED BLOOD CELLS 2 /100 WBC
[2017-08-06 10:17] LABS: PLATELET ESTIMATE DECREASED
[2017-08-07] VITALS (91 sets, daily range): BP systolic 57–95; BP diastolic 20–63
[2017-08-07] MEDS: IPRATROPIUM BROMIDE (0.02%) 0.5MG/2.5ML NEB HHN SCH ×3 (00:25→12:00)
[2017-08-07] MEDS: ACETYLCYSTEINE 100MG/ML 10% VIAL 4ML INH SCH ×3 (00:25→15:30)
[2017-08-07] MEDS: MORPHINE SULFATE 4 MG/ML CPJ (NOT FOR IM USE) IV PRN (01:45)
[2017-08-07] MEDS: VASOPRESSIN 10 UNIT in SODIUM CHLORIDE 0.9% 99.5 ML IV PRN ×4 (01:49→15:33)
[2017-08-07] MEDS: CEFTAZIDIME PENTAHYDRATE 2 G in DEXT 5% WATER 100 ML IV SCH ×3 (01:57→17:58)
[2017-08-07] MEDS: PHENYLEPHRINE 80 MG in DEXT 5% WATER 492 ML IV PRN ×3 (01:58→17:49)
[2017-08-07 05:54] LABS: HEMOGLOBIN. 7.4 g/dL (14.0-18.0); MEAN CORPUSCULAR HEMOGLOBIN 27.2 pg (28.0-32.0); MEAN CORPUSCULAR VOLUME 85.2 fL (80.0-94.0); RED CELL DISTRIBUTION WIDTH 19.4 % (11.6-14.6)
[2017-08-07] MEDS: INSULIN LISPRO 100 UNITS/ML SUBCUT SCH ×4 (06:00→17:49)
[2017-08-07 06:05] LABS: CHLORIDE 106 mEq/L (98-107)
[2017-08-07] MEDS: BLOOD SUGAR DIAGNOSTIC STRIP TEST SCH ×4 (06:15→17:49)
[2017-08-07 06:21] LABS: PHOSPHORUS 3.5 mg/dL (2.5-4.9)
[2017-08-07 06:51] LABS: NUCLEATED RED BLOOD CELLS 2 /100 WBC
[2017-08-07 06:52] LABS: PLATELET ESTIMATE MARKEDLY DECREASED
[2017-08-07 06:56] LABS: MEAN PLATELET VOLUME 11.3 fl (7.4-10.4); PLATELET 43 x1000/uL (130-400)
[2017-08-07 07:51] LABS: BG BASE EXCESS -9.6 mmol/L (-2.0-2.0); BG CARBOXYHEMOGLOBIN 0.3 % (0.5-1.5); BG DEOXYHEMOGLOBIN 6.2 % (0.0-5.0); BG FRACTION INSPIRED OXYGEN 30; BG HCO3 ACT 14.9 mmol/L (22.0-26.0); BG METHEMOGLOBIN 0.4 % (0.0-1.5); BG OXYGEN SATURATION 93.8 % (92.0-98.5); BG OXYHEMOGLOBIN 93.1 % (94.0-97.0); BG PCO2 27.4 mmHg (35.0-45.0); BG PH 7.353 (7.350-7.450); BG PO2 78.6 mmHg (75.0-100.0); BG SAMPLE SITE RIGHT BRACHIAL; BG TIDAL VOLUME(mL) 450 mL; BG TOTAL HEMOGLOBIN 8.5 g/dL (12.0-18.0); BG VENT MODE VENT - A/C; BG VENT RATE 18 set
[2017-08-07] MEDS: SULFAMETHOXAZOLE/TRIMETHOPRIM 800/160MG TABLET PO SCH ×2 (09:26→22:17)
[2017-08-07] MEDS: PANTOPRAZOLE SODIUM 40 MG/VIAL IV SCH ×2 (09:26→22:17)
[2017-08-07] MEDS: LEVETIRACETAM 1000MG/100ML 100 ML IV SCH ×2 (09:27→22:17)
[2017-08-07] MEDS: MIDODRINE HCL 5MG TABLET PO SCH ×3 (09:27→17:58)
[2017-08-07] MEDS: METRONIDAZOLE 500MG TABLET PO SCH ×2 (09:27→22:17)
[2017-08-07] MEDS: CALCITONIN,SALMON, 3.7 ML NASAL SPRAY ONENSTRL SCH (09:28)
[2017-08-07] MEDS: NOREPINEPHRINE 32 MG in DEXT 5% WATER 468 ML IV PRN (15:06)
[2017-08-08] VITALS (91 sets, daily range): BP systolic 51–113; BP diastolic 29–95
[2017-08-08] MEDS: BLOOD SUGAR DIAGNOSTIC STRIP TEST SCH ×4 (00:35→18:00)
[2017-08-08] MEDS: VASOPRESSIN 10 UNIT in SODIUM CHLORIDE 0.9% 99.5 ML IV PRN ×6 (00:36→23:27)
[2017-08-08] MEDS: PHENYLEPHRINE 80 MG in SODIUM CHLORIDE 0.9% 492 ML IV PRN ×3 (00:37→16:54)
[2017-08-08] MEDS: CEFTAZIDIME PENTAHYDRATE 2 G in DEXT 5% WATER 100 ML IV SCH ×3 (02:03→17:18)
[2017-08-08] MEDS: IPRATROPIUM BROMIDE (0.02%) 0.5MG/2.5ML NEB HHN SCH ×5 (02:25→22:02)
[2017-08-08] MEDS: INSULIN LISPRO 100 UNITS/ML SUBCUT SCH ×4 (06:00→18:00)
[2017-08-08] MEDS: ACETYLCYSTEINE 100MG/ML 10% VIAL 4ML INH SCH ×2 (07:59→22:06)
[2017-08-08] MEDS: SULFAMETHOXAZOLE/TRIMETHOPRIM 800/160MG TABLET PO SCH ×2 (09:20→21:12)
[2017-08-08] MEDS: PANTOPRAZOLE SODIUM 40 MG/VIAL IV SCH ×2 (09:20→21:11)
[2017-08-08] MEDS: METRONIDAZOLE 500MG TABLET PO SCH ×2 (09:21→21:12)
[2017-08-08] MEDS: MIDODRINE HCL 5MG TABLET PO SCH ×3 (09:21→17:18)
[2017-08-08] MEDS: CALCITONIN,SALMON, 3.7 ML NASAL SPRAY ONENSTRL SCH (09:22)
[2017-08-08] MEDS: LEVETIRACETAM 1000MG/100ML 100 ML IV SCH ×2 (09:22→21:12)
[2017-08-08] MEDS: NOREPINEPHRINE 32 MG in SODIUM CHLORIDE 0.9% 468 ML IV PRN (09:27)
[2017-08-09] VITALS (41 sets, daily range): BP systolic 62–122; BP diastolic 41–99
[2017-08-09] MEDS: DEXTROSE 50% WATER 50ML SYRINGE IV PRN ×2 (00:41)
[2017-08-09] MEDS: PHENYLEPHRINE 80 MG in SODIUM CHLORIDE 0.9% 492 ML IV PRN ×3 (00:44→23:32)
[2017-08-09] MEDS: IPRATROPIUM BROMIDE (0.02%) 0.5MG/2.5ML NEB HHN SCH (01:54)
[2017-08-09] MEDS: NOREPINEPHRINE 32 MG in SODIUM CHLORIDE 0.9% 468 ML IV PRN ×2 (02:34→19:51)
[2017-08-09] MEDS: CEFTAZIDIME PENTAHYDRATE 2 G in DEXT 5% WATER 100 ML IV SCH ×3 (02:35→19:49)
[2017-08-09] MEDS: VASOPRESSIN 10 UNIT in SODIUM CHLORIDE 0.9% 99.5 ML IV PRN ×4 (04:28→22:15)
[2017-08-09] MEDS: BLOOD SUGAR DIAGNOSTIC STRIP TEST SCH ×5 (06:00→23:06)
[2017-08-09] MEDS: INSULIN LISPRO 100 UNITS/ML SUBCUT SCH ×2 (06:00)
[2017-08-09] MEDS: ACETYLCYSTEINE 100MG/ML 10% VIAL 4ML INH SCH ×2 (08:20→16:15)
[2017-08-09] MEDS: LEVETIRACETAM 1000MG/100ML 100 ML IV SCH ×2 (09:00→20:19)
[2017-08-09] MEDS: METRONIDAZOLE 500MG TABLET PO SCH ×2 (09:00→20:19)
[2017-08-09] MEDS ORDERED: SODIUM BICARBONATE 50 MEQ in DEXTROSE 5% WATER 1,000 ML IV SCH ×2 (09:30→11:30)
[2017-08-09 09:55] LABS: BG BASE EXCESS -14.6 mmol/L (-2.0-2.0); BG CARBOXYHEMOGLOBIN 0.1 % (0.5-1.5); BG DEOXYHEMOGLOBIN 8.6 % (0.0-5.0); BG FRACTION INSPIRED OXYGEN 30; BG HCO3 ACT 11.5 mmol/L (22.0-26.0); BG METHEMOGLOBIN 0.1 % (0.0-1.5); BG OXYGEN SATURATION 91.4 % (92.0-98.5); BG OXYHEMOGLOBIN 91.2 % (94.0-97.0); BG PCO2 27.4 mmHg (35.0-45.0); BG SAMPLE SITE RIGHT RADIAL; BG TIDAL VOLUME(mL) 450 mL; BG TOTAL HEMOGLOBIN 6.8 g/dL (12.0-18.0); BG VENT MODE VENT - A/C; BG VENT RATE 18 set
[2017-08-09] MEDS ORDERED: DEXTROSE 50% WATER 50ML SYRINGE IV PRN (13:00)
[2017-08-09] MEDS: MIDODRINE HCL 5MG TABLET PO SCH (14:21)
[2017-08-09] MEDS: SULFAMETHOXAZOLE/TRIMETHOPRIM 800/160MG TABLET PO SCH ×2 (14:29→20:19)
[2017-08-09] MEDS: PANTOPRAZOLE SODIUM 40 MG/VIAL IV SCH ×2 (14:30→20:19)
[2017-08-09] MEDS: CALCITONIN,SALMON, 3.7 ML NASAL SPRAY ONENSTRL SCH (16:02)
[2017-08-09] MEDS: ALBUTEROL (0.083%) 2.5MG/3ML NEB HHN PRN (19:43)
[2017-08-10] VITALS (53 sets, daily range): BP systolic 68–204; BP diastolic 17–80
[2017-08-10] MEDS: CEFTAZIDIME PENTAHYDRATE 2 G in DEXT 5% WATER 100 ML IV SCH ×2 (01:15→09:12)
[2017-08-10] MEDS: VASOPRESSIN 10 UNIT in SODIUM CHLORIDE 0.9% 99.5 ML IV PRN ×3 (02:36→12:04)
[2017-08-10] MEDS: BLOOD SUGAR DIAGNOSTIC STRIP TEST SCH ×2 (05:59→12:04)
[2017-08-10] MEDS: INSULIN LISPRO 100 UNITS/ML SUBCUT SCH ×2 (06:00)
[2017-08-10] MEDS: PHENYLEPHRINE 80 MG in SODIUM CHLORIDE 0.9% 492 ML IV PRN (07:34)
[2017-08-10] MEDS: MIDODRINE HCL 5MG TABLET PO SCH (09:00)
[2017-08-10] MEDS: PANTOPRAZOLE SODIUM 40 MG/VIAL IV SCH (09:11)
[2017-08-10] MEDS: SULFAMETHOXAZOLE/TRIMETHOPRIM 800/160MG TABLET PO SCH (09:12)
[2017-08-10] MEDS: LEVETIRACETAM 1000MG/100ML 100 ML IV SCH (09:12)
[2017-08-10] MEDS: METRONIDAZOLE 500MG TABLET PO SCH (09:12)
[2017-08-10] MEDS: CALCITONIN,SALMON, 3.7 ML NASAL SPRAY ONENSTRL SCH (09:28)
[2017-08-10] MEDS: MORPHINE SULFATE 4 MG/ML CPJ (NOT FOR IM USE) IV PRN ×2 (12:25→14:26)
[2017-08-10] MEDS ORDERED: CEFTAZIDIME PENTAHYDRATE 2 G in DEXT 5% WATER 100 ML IV SCH (18:00)
[2017-08-10] MEDS ORDERED: SULFAMETHOXAZOLE/TRIMETHOPRIM 800/160MG TABLET PO SCH (21:00)
[2017-08-10] MEDS ORDERED: METRONIDAZOLE 500MG TABLET PO SCH (21:00)
== END 2017-08-10 23:40 | disposition expired | DRG 130 ==
LOC: ER 22:00 → MICUSO 07-13 02:09 → EDBEDREQ 07-13 02:14 → CANRESERV 07-13 07:06 → ENRESERV 07-13 07:06 → EDBEDREQSVC 07-13 19:09 → ENRESERV 07-13 19:43 → EDBEDREQTM 07-13 20:31 → 5EST 07-22 11:12 → CVICU 08-02 14:05
PROVIDERS: ADMIT Family Medicine; ATTEND Family Medicine
PROC: 5A1955Z Respiratory Ventilation, Greater than 96 Consecutive Hours (ICD-10-PCS; 2017-07-13)
PROC: 0B21XFZ Change Tracheostomy Device in Trachea, External Approach (ICD-10-PCS; 2017-07-13)
PROC: 05HY33Z Insertion of Infusion Device into Upper Vein, Percutaneous Approach (ICD-10-PCS; 2017-07-14)
PROC: B54MZZA Ultrasonography of Right Upper Extremity Veins, Guidance (ICD-10-PCS; 2017-07-14)
PROC: 30233N1 Transfusion of Nonautologous Red Blood Cells into Peripheral Vein, Percutaneous Approach (ICD-10-PCS; 2017-07-16)
PROC: 0DH63UZ Insertion of Feeding Device into Stomach, Percutaneous Approach (ICD-10-PCS; principal; 2017-07-20 16:30)
DX: J95.02 Infection of tracheostomy stoma (principal); R65.21 Severe sepsis with septic shock; K72.00 Acute and subacute hepatic failure without coma; I61.9 Nontraumatic intracerebral hemorrhage, unspecified; A41.9 Sepsis, unspecified organism; J96.21 Acute and chronic respiratory failure with hypoxia; I31.4 Cardiac tamponade; G93.40 Encephalopathy, unspecified; E43 Unspecified severe protein-calorie malnutrition; B49 Unspecified mycosis; J15.6 Pneumonia due to other Gram-negative bacteria; D68.59 Other primary thrombophilia; Z99.11 Dependence on respirator [ventilator] status; J44.0 Chronic obstructive pulmonary disease with (acute) lower respiratory infection; E87.0 Hyperosmolality and hypernatremia; C78.7 Secondary malignant neoplasm of liver and intrahepatic bile duct; Z66 Do not resuscitate; C14.0 Malignant neoplasm of pharynx, unspecified; R74.8 Abnormal levels of other serum enzymes; J16.8 Pneumonia due to other specified infectious organisms; E87.6 Hypokalemia; I10 Essential (primary) hypertension; E11.9 Type 2 diabetes mellitus without complications; Z51.5 Encounter for palliative care; I31.3 Pericardial effusion (noninflammatory); I47.1 Supraventricular tachycardia; E83.52 Hypercalcemia; C32.9 Malignant neoplasm of larynx, unspecified; D50.9 Iron deficiency anemia, unspecified; D69.6 Thrombocytopenia, unspecified; R13.12 Dysphagia, oropharyngeal phase; L89.220 Pressure ulcer of left hip, unstageable; L89.890 Pressure ulcer of other site, unstageable; E78.5 Hyperlipidemia, unspecified; E83.39 Other disorders of phosphorus metabolism; E83.42 Hypomagnesemia; G40.901 Epilepsy, unspecified, not intractable, with status epilepticus; R62.7 Adult failure to thrive; J45.20 Mild intermittent asthma, uncomplicated; K29.70 Gastritis, unspecified, without bleeding; K44.9 Diaphragmatic hernia without obstruction or gangrene; Y83.8 Other surgical procedures as the cause of abnormal reaction of the patient, or of later complication, without mention of misadventure at the time of the procedure; Y92.89 Other specified places as the place of occurrence of the external cause; Z68.1 Body mass index [BMI] 19.9 or less, adult; Z86.73 Personal history of transient ischemic attack (TIA), and cerebral infarction without residual deficits; Z87.891 Personal history of nicotine dependence; Z92.21 Personal history of antineoplastic chemotherapy
CPT/HCPCS: 36415; 36569; 36600; 70450; 71045; 74176; 76937; 80048; 80053; 80061; 80076; 80162; 80202; 80305; 81003; 82105; 82306; 82330; 82375; 82378; 82533; 82550; 82553; 82570; 82607; 82652; 82728; 82746; 82784; 82805; 82962; 83036; 83540; 83550; 83605; 83735; 83935; 83970; 84100; 84133; 84134; 84155; 84165; 84300; 84439; 84443; 84478; 84484; 85025; 85362; 85379; 85384; 85610; 85730; 86022; 86334; 86850; 86900; 86920; 87040; 87070; 87077; 87086; 87186; 93005; 93306; 93308; 93970; 93971; 94002; 94003; 94640; 96365; 96367; 96375; 99291; A6261; C1725; C9113; J0692; J0713; J1160; J1200; J1265; J1450; J1650; J1720; J1815; J1940; J1953; J1956; J2060; J2250; J2270; J2370; J2405; J2430; J2543; J3370; J3411; J3475; J3480; J3490; J7030; J7040; J7042; J7050; J7060; J7070; J7131; J7608; J7611; J7620; P9016; P9047; A4315